=== PATIENT | female | born 1940 | race Caucasian/White ===

== ENCOUNTER 2019-08-28 09:31 | Inpatient (IN) ==
[2019-08-28] MEDS ORDERED: FUROSEMIDE 40 MG/4 ML VIAL IV STA (09:42)
[2019-08-28] MEDS ORDERED: NITROGLYCERIN/D5W 100MCG/ML 250 ML IV SCH (09:45)
[2019-08-28] MEDS ORDERED: NITROGLYCERIN SL 0.4 MG/TAB TAB ONE (09:49)
[2019-08-28 10:03] LABS: Basophils # (auto) 0.06 K/uL (0-0.2); Basophils % (auto) 0.4 %; Eosinophils % (auto) 2.6 %; Hematocrit (blood only) 41.5 % (37-47); Hemoglobin 13.2 g/dL (12.0-16.0); Immature Granulocytes # (auto) 0.07 K/uL (0.00-0.02); Immature Granulocytes % (auto) 0.4 %; Lymphocytes # (auto) 1.59 K/uL (1.2-3.4); Lymphocytes % (auto) 10.1 %; Mean Corpuscular Hemoglobin 30.1 pg (25-34); Mean Corpuscular Hgb Conc 31.8 g/dL (32-36); Mean Corpuscular Volume 94.5 fL (80-100); Monocytes # (auto) 0.77 K/uL (0.11-0.59); Monocytes % (auto) 4.9 %; Neutrophils # (auto) 12.78 K/uL (1.4-6.5); Neutrophils % (auto) 81.6 %; Platelet Count 339 K/uL (130-400); RDW Coefficient of Variation 14.6 % (11.5-14.5); RDW Standard Deviation 49.6 fL (36.4-46.3); Red Blood Count 4.39 M/uL (4.2-5.4); White Blood Count 15.67 K/uL (4.8-10.8)
[2019-08-28 10:07] LABS: iSTAT Creatinine 0.9 mg/dl (0.6-1.3); iSTAT Ionized Calcium 1.19 mmol/l (1.12-1.32); iSTAT Potassium 4.2 mEq/L (3.3-5.0)
[2019-08-28 10:12] LABS: Base Excess VBG -2.9 mEq/L; Oxygen Saturation VBG 69.5 %; pH VBG 7.25 (7.36-7.41)
--- NOTE | 2019-08-28 10:12 | XRay Report ---
XR chest 1V portable HISTORY: 89 years-old Female Dyspnea acute shortness of breath COMPARISON: None available TECHNIQUE: Portable AP view of the chest FINDINGS: Cardiac silhouette is moderately enlarged. Pulmonary vascular congestion with interstitial opacities. Mild right hemidiaphragmatic elevation. Trace pleural effusions with mild bibasilar densities sugges tive of atelectasis. Degenerative changes of the spine. Bilateral shoulder arthroplasties. IMPRESSION: 1. Cardiomegaly with pulmonary edema. 2. Trace pleural effusions with bibasilar opacities suggestive of probable atelectasis. ACT 112: Negative or not required by law. The above report was generated using voice recognition software. It may contain grammatical, syntax o r spelling errors. Electronically signed by: Shankar Giang M.D. 08/28/2019 10:10 AM
[2019-08-28 10:16] LABS: INR 1.1 (0.9-1.1); Partial Thromboplastin Ratio 1.1; Partial Thromboplastin Time 29.1 Seconds (21.0-31.0); Prothrombin Time 11.4 Seconds (9.0-12.0)
[2019-08-28 10:21] LABS: Alanine Aminotransferase 20 U/L (12-78); Albumin Level 3.8 gm/dl (3.4-5.0); Aspartate Aminotransferase 24 U/L (15-37); BUN Creatinine Ratio 12.7 (10-20); Blood Urea Nitrogen 13 mg/dl (7-18); Calcium 9.4 mg/dl (8.5-10.1); Carbon Dioxide 29 mmol/L (21-32); Chloride 105 mmol/L (98-107); Est GFR (African American) 58.7; Est GFR (Non-African American) 50.6; Glucose 179 mg/dl (70-99); Magnesium 1.7 mg/dl (1.8-2.4); Potassium 4.3 mmol/L (3.5-5.1); Sodium 137 mmol/L (136-145)
[2019-08-28 10:25] LABS: Alkaline Phosphatase 67 U/L (45-117); Bilirubin,Total 0.7 mg/dl (0.2-1); Globulin 3.8 gm/dl (2.5-4.0); Total Protein 7.6 gm/dl (6.4-8.2); Troponin I < 0.015 ng/ml (0-0.045)
[2019-08-28 10:26] LABS: Appearance Urine Clear (Clear); Bacteria Urine Automated Negative (Negative); Bilirubin Urine Negative (Negative); Blood Urine Trace (Negative); Cast Urine Automated 0 /lpf (0-5); Color Urine Yellow; Glucose Urine UA Trace (Negative); Ketones Urine Negative (Negative); Leukocyte Esterase Urine Negative (Negative); Nitrite Urine Negative (Negative); Protein Urine 1+ (Negative); RBC Urine Automated 0-4 /hpf (0-4); Specific Gravity Urine 1.008 (1.000-1.030); Urobilinogen Urine Negative (Negative); WBC Urine Automated 0 /hpf (0-5)
[2019-08-28] MEDS ORDERED: MAGNESIUM SULFATE / D5W 1 GM/100 ML BAG IV ONE (10:28)
--- NOTE | 2019-08-28 11:10 | Emergency Department Note ---
Entered by Joana Escobar acting as a scribe for Mahesh Glez DO History of Present Illness General Chief complaint: Shortness of Breath/Dyspnea Stated complaint: SOB Time Seen by Provider: 08/28/19 09:37 Source: patient and family ([id number]) History of Present Illness Onset (ago): hour(s) (last night) Location: chest Severity: severe Pain Consistency: + other (episode) Quality: + other (shortness of breath) Associated symptoms: + cough (productive) The patient is a 89 year old female that is presenting to the Emergency Room with complaints of an episode of severe shortness of breath that started last night and worsened this morning. The patient reports that she is unable to breath. She denies wearing O2 normally. She notes that she was told that she has a history of CHF but she is unsure of the etiology. She denies any known history of a heart attack or heart valve issues. She notes that her shortness of breath worsens with lying flat. She reports that she is coughing up a significant amount of phlegm. The patient states that she is taking Elliquis secondary to a history of atrial fibrillation. The patients [id number] states that the patient was feeling mildly unwell before Bia but then reported feeling well enough to drive here from [place] 4 days ago. The patient states that she took all of her medications this morning. Home Medications Home Medications Medication Instructions Recorded Confirmed Type acetaminophen [Tylenol Extra 500 mg PO UD PRN 08/28/19 08/28/19 History Strength] albuterol sulfate 2 puff INHALATION Q6H PRN 08/28/19 08/28/19 History amlodipine 5 mg PO DAILY 08/28/19 08/28/19 History apixaban 5 mg PO BID 08/28/19 08/28/19 History benzonatate 100 mg PO TID PRN 08/28/19 08/28/19 History budesonide-formoterol [Symbicort] 2 puff INHALATION BID PRN 08/28/19 08/28/19 History clotrimazole-betamethasone 1 applic TOPICAL BID 08/28/19 08/28/19 History [Lotrisone] fenofibrate nanocrystallized 145 mg PO DAILY 08/28/19 08/28/19 History [Tricor] furosemide 40 mg PO QAM 08/28/19 08/28/19 History losartan 100 mg PO DAILY 08/28/19 08/28/19 History metformin 500 mg PO DAILY 08/28/19 08/28/19 History metoprolol succinate [Toprol XL] 100 mg PO DAILY 08/28/19 08/28/19 History montelukast [Singulair] 10 mg PO HS 08/28/19 08/28/19 History multivitamin 1 tab PO DAILY 08/28/19 08/28/19 History omeprazole 20 mg PO DAILY 08/28/19 08/28/19 History pravastatin 40 mg PO DAILY 08/28/19 08/28/19 History pregabalin 100 mg PO TID 08/28/19 08/28/19 History sotalol 120 mg PO BID 08/28/19 08/28/19 History Allergies Allergy/AdvReac Type Severity Reaction Status Date / Time No Known Drug Allergies Allergy Unknown NKDA Verified 08/28/19 10:52 Past Med/Surg History Medical History Aftercare following bilateral shoulder joint replacement surgery Atrial fibrillation CHF (congestive heart failure) Diabetes type 2, controlled Hyperlipidemia Hypertension Surgical History H/O hysterectomy for benign disease History of bilateral knee replacement Family History Other Family history non-contributory Social History Preferred Language: Swazi Communication Ability: Effective Beliefs That Will Affect Care: None marital status: / Current Living Situation: Alone current occupational status: retired Feels Safe at Home: Yes Safety Concerns: Feels Safe At This Time Smoking Status: Never smoker Do You Dip or Chew Tobacco: No ; Hx Alcohol Use: Yes Alcohol type: wine Hx Substance Use: No Review of Systems See HPI for pertinent positives & negatives. and A total of 10 systems reviewed and were otherwise negative Physical Exam Vital Signs Vital Signs - 24 hr 08/28/19 09:43 08/28/19 09:45 08/28/19 09:47 Temperature 37.3 C Temperature Source Oral Pulse Rate 77 Pulse Rate [Apical] 79 Pulse Rate from SpO2 Sensor Pulse Rhythm [Apical] Regular Respiratory Rate 26 H 32 H Respiratory Effort / Characteristics Grunting Labored Blood Pressure 198/103 H Blood Pressure [Left Arm] 200/94 H Blood Pressure Mean 134 Blood Pressure Mean [Left Arm] 129 Blood Pressure Position Sitting Blood Pressure Position [Left Arm] Sitting Pulse Oximetry 72 L 72 L 100 Oxygen Delivery Method Room Air Room Air Non-rebreather Non-rebreather Oxygen Flow Rate 0 Fraction of Inspired Oxygen Sepsis Action Taken by Nursing No Action Required Oxygen Flow Rate - Titration 15 Pulse Oximetry Post Tiitration 100 08/28/19 09:55 08/28/19 10:01 08/28/19 10:10 Temperature Temperature Source Pulse Rate 88 86 Pulse Rate [Apical] 86 Pulse Rate from SpO2 Sensor 88 86 Pulse Rhythm [Apical] Respiratory Rate 26 H 31 H 33 H Respiratory Effort / Characteristics Spontaneous Labored Blood Pressure 180/157 H 194/99 H Blood Pressure [Left Arm] Blood Pressure Mean 160 122 Blood Pressure Mean [Left Arm] Blood Pressure Position Blood Pressure Position [Left Arm] Pulse Oximetry 97 94 95 Oxygen Delivery Method High Flow Nasal Cannula Other Other Oxygen Flow Rate 30 Fraction of Inspired Oxygen 40 Sepsis Action Taken by Nursing Oxygen Flow Rate - Titration Pulse Oximetry Post Tiitration 08/28/19 10:15 08/28/19 10:19 08/28/19 10:31 Temperature Temperature Source Pulse Rate 84 85 Pulse Rate [Apical] Pulse Rate from SpO2 Sensor 84 81 Pulse Rhythm [Apical] Respiratory Rate 35 H 34 H Respiratory Effort / Characteristics Labored Moaning Blood Pressure 183/84 H 154/78 H Blood Pressure [Left Arm] Blood Pressure Mean 117 118 Blood Pressure Mean [Left Arm] Blood Pressure Position Blood Pressure Position [Left Arm] Pulse Oximetry 97 98 Oxygen Delivery Method Other Other Oxygen Flow Rate Fraction of Inspired Oxygen Sepsis Action Taken by Nursing Oxygen Flow Rate - Titration Pulse Oximetry Post Tiitration 08/28/19 10:40 08/28/19 10:45 08/28/19 10:50 Temperature Temperature Source Pulse Rate 81 100 H 98 H Pulse Rate [Apical] Pulse Rate from SpO2 Sensor 81 107 H 97 H Pulse Rhythm [Apical] Respiratory Rate 26 H 33 H 28 H Respiratory Effort / Characteristics Blood Pressure 142/64 H 133/74 Blood Pressure [Left Arm] Blood Pressure Mean 80 88 Blood Pressure Mean [Left Arm] Blood Pressure Position Blood Pressure Position [Left Arm] Pulse Oximetry 97 95 96 Oxygen Delivery Method Oxygen Flow Rate Fraction of Inspired Oxygen Sepsis Action Taken by Nursing Oxygen Flow Rate - Titration Pulse Oximetry Post Tiitration 08/28/19 11:00 Temperature Temperature Source Pulse Rate 96 H Pulse Rate [Apical] Pulse Rate from SpO2 Sensor 93 H Pulse Rhythm [Apical] Respiratory Rate 22 Respiratory Effort / Characteristics Blood Pressure 116/76 Blood Pressure [Left Arm] Blood Pressure Mean 97 Blood Pressure Mean [Left Arm] Blood Pressure Position Blood Pressure Position [Left Arm] Pulse Oximetry 96 Oxygen Delivery Method Oxygen Flow Rate Fraction of Inspired Oxygen Sepsis Action Taken by Nursing Oxygen Flow Rate - Titration Pulse Oximetry Post Tiitration GENERAL: Patient is awake, alert, and in significant distress.Patient is anxious appearing. EYES: The conjunctivae are clear. The pupils are round and reactive. EARS, NOSE, MOUTH AND THROAT: The nose is without any evidence of any deformity. Mucous membranes are moist.Tongue is midline NECK: The neck is nontender and supple. RESPIRATORY: Breath sounds diminished throughout. Rales in all lungs pfeiffer. Breathing is shallow. CARDIOVASCULAR: Heart sounds diminished. Regular rate and rhythm noted to auscultation. No definite murmur appreciated. GASTROINTESTINAL: The abdomen is soft. Bowel sounds are present in all quadrants. Abdomen is nontender. MUSCULOSKELETAL/EXTREMITIES: There is no evidence of gross deformity. Full range of motion is noted in the hips and shoulders. SKIN: There is no obvious evidence of any rash. There are no petechiae, pallor or cyanosis noted. NEUROLOGIC: Patient is awake alert and oriented x3. Course Course 0937:The patient was evaluated in room B01. A complete history and physical examination was performed. 0940: Respiratory response team called. 0948: BP is 211/94 and heart rate is 85 bpm. Patient will be given Nitro sublingual. 0955: Patient was started on a Nitro drip and as well as Lasix. 1019: I discussed the patients case with Leyda Owen, who will evaluate the patient for further management and care. Magnesium was ordered at this time. 1032: Upon reevaluation, the patient is resting comfortably. I discussed laboratory and radiographic results with the patient and her family. They verbalized agreement of the treatment plan. The patient will be evaluated for further management and care. 1045: The patient continues to rest comfortably at this time following treatment. Administered Medications Amlodipine Besylate (Norvasc) 10 mg PO QAM [facility] Stop: 09/28/19 08:59 Last Admin: 08/29/19 08:00 Dose: 10 mg Documented by: [id number] Apixaban (Eliquis) 5 mg PO BID [facility] Stop: 09/27/19 20:59 Last Admin: 08/29/19 07:57 Dose: 5 mg Documented by: [id number] Admin: 08/28/19 20:04 Dose: 5 mg Documented by: [id number] Betamethasone/Clotrimazole (Lotrisone 1/0.5%) 1 appln EXT BID [facility] Stop: 09/27/19 20:59 Last Admin: 08/29/19 08:00 Dose: Not Given Documented by: [id number] Admin: 08/28/19 20:05 Dose: 1 appln Documented by: [id number] Doxycycline Hyclate (Vibramycin) 100 mg PO BID [facility] Stop: 09/02/19 12:59 Last Admin: 08/29/19 07:58 Dose: 100 mg Documented by: [id number] Admin: 08/28/19 20:09 Dose: 100 mg Documented by: [id number] Admin: 08/28/19 14:16 Dose: 100 mg Documented by: [id number] Fenofibrate (Tricor) 145 mg PO DAILY [facility] Stop: 09/28/19 08:59 Last Admin: 08/29/19 07:57 Dose: 145 mg Documented by: [id number] Promethazine HCl 12.5 mg/ (Sodium Chloride) 50.5 mls @ 202 mls/hr IV Q6H PRN PRN Reason: Nausea And Vomiting Stop: 09/27/19 14:45 Last Infusion: 08/28/19 17:15 Dose: 0 mls/hr Documented by: [id number] Admin: 08/28/19 16:59 Dose: 202 mls/hr Documented by: [id number] Insulin Aspart (Novolog Flexpen) 0 units SC ACHS [facility] Stop: 09/27/19 16:29 Last Admin: 08/29/19 07:56 Dose: 1 units Documented by: [id number] Cosigned by: [id number] Admin: 08/28/19 20:16 Dose: Not Given Documented by: [id number] Admin: 08/28/19 16:58 Dose: Not Given Documented by: [id number] Cosigned by: [id number] Losartan Potassium (Cozaar) 100 mg PO DAILY [facility] Stop: 09/28/19 08:59 Last Admin: 08/29/19 08:00 Dose: 100 mg Documented by: [id number] Metoprolol Succinate (Toprol Xl) 100 mg PO QAM [facility] Stop: 09/28/19 08:59 Last Admin: 08/29/19 08:06 Dose: 100 mg Documented by: [id number] Montelukast Sodium (Singulair) 10 mg PO HS [facility] Stop: 09/27/19 20:59 Last Admin: 08/28/19 20:08 Dose: 10 mg Documented by: [id number] Multivitamins (Multivitamin Tab) 1 tab PO DAILY [facility] Stop: 09/28/19 08:59 Last Admin: 08/29/19 07:58 Dose: 1 tab Documented by: [id number] Ondansetron HCl (Zofran) 4 mg IV Q6H PRN PRN Reason: Nausea Stop: 09/27/19 20:59 Last Admin: 08/28/19 21:30 Dose: 4 mg Documented by: [id number] Oseltamivir Phosphate (Tamiflu) 30 mg PO BID [facility]; Protocol Stop: 09/02/19 14:59 Last Admin: 08/29/19 08:06 Dose: 30 mg Documented by: [id number] Admin: 08/28/19 20:17 Dose: 30 mg Documented by: [id number] Admin: 08/28/19 14:42 Dose: 30 mg Documented by: [id number] Pantoprazole Sodium (Protonix) 40 mg PO DAILY [facility] Stop: 09/28/19 08:59 Last Admin: 08/29/19 07:57 Dose: 40 mg Documented by: [id number] Pravastatin Sodium (Pravachol) 40 mg PO DAILY [facility] Stop: 09/28/19 08:59 Last Admin: 08/29/19 07:58 Dose: 40 mg Documented by: [id number] Pregabalin (Lyrica) 100 mg PO TID [facility] Stop: 09/27/19 13:59 Last Admin: 08/29/19 08:06 Dose: 100 mg Documented by: [id number] Admin: 08/28/19 20:06 Dose: 100 mg Documented by: [id number] Admin: 08/28/19 14:16 Dose: 100 mg Documented by: [id number] Sotalol HCl (Betapace) 120 mg PO BID [facility] Stop: 09/27/19 20:59 Last Admin: 08/29/19 07:58 Dose: 120 mg Documented by: [id number] Admin: 08/28/19 20:33 Dose: 120 mg Documented by: [id number] Discontinued Medications Amlodipine Besylate (Norvasc) 5 mg PO DAILY [facility] Stop: 09/27/19 12:09 Last Admin: 08/28/19 13:21 Dose: Not Given Documented by: [id number] Furosemide (Lasix) 40 mg IV NOW STA Stop: 08/28/19 09:43 Last Admin: 08/28/19 09:51 Dose: 40 mg Documented by: [id number] Gabapentin (Neurontin) 100 mg PO NOW STA Stop: 08/28/19 18:22 Last Admin: 08/29/19 03:39 Dose: Not Given Documented by: [id number] Nitroglycerin/Dextrose (Nitroglycerin/D5w 100 Mcg/Ml) 250 mls @ 3 mls/hr IV .Q24H [facility]; Protocol Stop: 09/27/19 09:44 Last Titration: 08/28/19 17:00 Dose: 0 mcg/min, 0 mls/hr Documented by: [id number] Admin: 08/28/19 09:55 Dose: 5 mcg/min, 3 mls/hr Documented by: [id number] Cosigned by: [id number] Magnesium Sulfate/Dextrose (Magnesium Sulfate / D5w) 1 gm in 100 mls @ 100 mls/hr IV ONE ONE Stop: 08/28/19 11:27 Last Infusion: 08/28/19 12:00 Dose: 0 mls/hr Documented by: [id number] Admin: 08/28/19 10:45 Dose: 100 mls/hr Documented by: [id number] Furosemide 40 mg/ Syringe 4 mls @ 4 mls/min IV [id number] [facility] Stop: 09/27/19 16:59 Last Admin: 08/29/19 08:06 Dose: 4 mls/min Documented by: [id number] Admin: 08/28/19 16:59 Dose: 4 mls/min Documented by: [id number] Potassium Chloride (K Enrrique / Wtr) 10 meq in 100 mls @ 100 mls/hr IV Q1H [facility] Stop: 08/29/19 08:29 Last Infusion: 08/29/19 08:34 Dose: 0 mls/hr Documented by: [id number] Admin: 08/29/19 07:34 Dose: 100 mls/hr Documented by: [id number] Infusion: 08/29/19 07:23 Dose: 100 mls/hr Documented by: [id number] Admin: 08/29/19 06:23 Dose: 100 mls/hr Documented by: [id number] Nitroglycerin (Nitrostat) Confirm Administered Dose 1.2 mg .ROUTE .STK-MED ONE Stop: 08/28/19 09:50 Last Admin: 08/28/19 09:50 Dose: 0.4 mg Documented by: [id number] Pregabalin (Lyrica) 100 mg PO ONE ONE Stop: 08/28/19 19:01 Last Admin: 08/28/19 18:49 Dose: 100 mg Documented by: [id number] Critical Care Time Critical Care Time: Yes Total Critical Care Time: 60 I have personally spent 60 minutes of critical care time in the direct management of this patient. This includes bedside care, interpretation of diagnostic studies, and testing, discussion with consultants, patient, and [facility] members, and other required patient management activities. This 60 minutes is in excess of all separately billable procedures. Medical Decision Making Differential Diagnosis Differential diagnoses includes but is not limited to pneumonia, bronchitis, COPD/Asthma exacerbation, pneumothorax, pulmonary embolism, congestive heart failure, acute coronary syndrome Medical Records Attestation: I reviewed the patient's medical records. Home Medications Current Medication List: was personally reviewed by me Laboratory Data Attestation: I reviewed the patient's lab results. Result diagrams: 08/29/19 04:15 08/29/19 04:15 Lab Results 08/28/19 08/28/19 08/28/19 Range/Units 09:49 09:49 09:49 WBC 15.67 H (4.8-10.8) K/uL RBC 4.39 (4.2-5.4) M/uL Hgb 13.2 (12.0-16.0) g/dL POC Hgb (12.0-16.0) g/dl Hct 41.5 (37-47) % POC Hct (37-47) % MCV 94.5 (80-100) fL MCH 30.1 (25-34) pg MCHC 31.8 L (32-36) g/dL RDW Std Deviation 49.6 H (36.4-46.3) fL RDW Coeff of Kirk 14.6 H (11.5-14.5) % Plt Count 339 (130-400) K/uL MPV 10.0 (7.4-10.4) fL Immature Gran % (Auto) 0.4 % Neut % (Auto) 81.6 % Lymph % (Auto) 10.1 % [place] % (Auto) 4.9 % Eos % (Auto) 2.6 % Baso % (Auto) 0.4 % Immature Gran # (Auto) 0.07 H (0.00-0.02) K/uL Neut # (Auto) 12.78 H (1.4-6.5) K/uL Lymph # (Auto) 1.59 (1.2-3.4) K/uL [place] # (Auto) 0.77 H (0.11-0.59) K/uL Eos # (Auto) 0.40 (0-0.5) K/uL Baso # (Auto) 0.06 (0-0.2) K/uL PT 11.4 (9.0-12.0) Seconds INR 1.1 (0.9-1.1) APTT 29.1 (21.0-31.0) Seconds PTT Ratio 1.1 VBG pH (7.36-7.41) VBG pCO2 (38-50) mmHg VBG pO2 mmHg VBG HCO3 mmol/L VBG O2 Saturation % VBG Base Excess mEq/L Barometric Pressure mm/Hg POC Sodium (135-144) mEq/L Sodium 137 (136-145) mmol/L POC Potassium (3.3-5.0) mEq/L Potassium 4.3 (3.5-5.1) mmol/L POC Chloride (101-112) mEq/L Chloride 105 (98-107) mmol/L Carbon Dioxide 29 (21-32) mmol/L POC Total CO2 (24-31) mEq/l Anion Gap 3.0 (3-11) POC Anion Gap (16-25) mmol/L POC BUN (7-18) mg/dl BUN 13 (7-18) mg/dl Creatinine 1.00 (0.6-1.2) mg/dl POC Creatinine (0.6-1.3) mg/dl Est Cr Clr Drug Dosing Not Reportable Est GFR ( Amer) 58.7 Est GFR (Non-Af Amer) 50.6 BUN/Creatinine Ratio 12.7 (10-20) Glucose 179 H (70-99) mg/dl POC Glucose (other) (70-99) mg/dl Calcium 9.4 (8.5-10.1) mg/dl POC Ioniz Calcium Wilfredo (1.12-1.32) mmol/l Magnesium 1.7 L (1.8-2.4) mg/dl Total Bilirubin 0.7 (0.2-1) mg/dl AST 24 (15-37) U/L ALT 20 (12-78) U/L Alkaline Phosphatase 67 (45-117) U/L Troponin I < 0.015 (0-0.045) ng/ml Total Protein 7.6 (6.4-8.2) gm/dl Albumin 3.8 (3.4-5.0) gm/dl Globulin 3.8 (2.5-4.0) gm/dl Albumin/Globulin Ratio 1.0 (0.9-2) Urine Color Urine Appearance (Clear) Urine pH (4.5-7.5) Ur Specific [place] (1.000-1.030) Urine Protein (Negative) Urine Glucose (UA) (Negative) Urine Ketones (Negative) Urine Blood (Negative) Urine Nitrite (Negative) Urine Bilirubin (Negative) Urine Urobilinogen (Negative) Ur Leukocyte Esterase (Negative) Urine WBC (Auto) (0-5) /hpf Urine RBC (Auto) (0-4) /hpf U Hyaline Cast (Auto) (0-5) /lpf U Epithel Cells (Auto) (0-5) /lpf Urine Bacteria (Auto) (Negative) 08/28/19 08/28/19 08/28/19 Range/Units 09:49 09:51 10:10 WBC (4.8-10.8) K/uL RBC (4.2-5.4) M/uL Hgb (12.0-16.0) g/dL POC Hgb 15.0 (12.0-16.0) g/dl Hct (37-47) % POC Hct 44 (37-47) % MCV (80-100) fL MCH (25-34) pg MCHC (32-36) g/dL RDW Std Deviation (36.4-46.3) fL RDW Coeff of Kirk (11.5-14.5) % Plt Count (130-400) K/uL MPV (7.4-10.4) fL Immature Gran % (Auto) % Neut % (Auto) % Lymph % (Auto) % [place] % (Auto) % Eos % (Auto) % Baso % (Auto) % Immature Gran # (Auto) (0.00-0.02) K/uL Neut # (Auto) (1.4-6.5) K/uL Lymph # (Auto) (1.2-3.4) K/uL [place] # (Auto) (0.11-0.59) K/uL Eos # (Auto) (0-0.5) K/uL Baso # (Auto) (0-0.2) K/uL PT (9.0-12.0) Seconds INR (0.9-1.1) APTT (21.0-31.0) Seconds PTT Ratio VBG pH 7.25 L (7.36-7.41) VBG pCO2 58 H (38-50) mmHg VBG pO2 42 mmHg VBG HCO3 25 mmol/L VBG O2 Saturation 69.5 % VBG Base Excess -2.9 mEq/L Barometric Pressure 735.5 mm/Hg POC Sodium 138 (135-144) mEq/L Sodium (136-145) mmol/L POC Potassium 4.2 (3.3-5.0) mEq/L Potassium (3.5-5.1) mmol/L POC Chloride 104 (101-112) mEq/L Chloride (98-107) mmol/L Carbon Dioxide (21-32) mmol/L POC Total CO2 25 (24-31) mEq/l Anion Gap (3-11) POC Anion Gap 14.0 L (16-25) mmol/L POC BUN 13 (7-18) mg/dl BUN (7-18) mg/dl Creatinine (0.6-1.2) mg/dl POC Creatinine 0.9 (0.6-1.3) mg/dl Est Cr Clr Drug Dosing Est GFR ( Amer) Est GFR (Non-Af Amer) BUN/Creatinine Ratio (10-20) Glucose (70-99) mg/dl POC Glucose (other) 172 H (70-99) mg/dl Calcium (8.5-10.1) mg/dl POC Ioniz Calcium Wilfredo 1.19 (1.12-1.32) mmol/l Magnesium (1.8-2.4) mg/dl Total Bilirubin (0.2-1) mg/dl AST (15-37) U/L ALT (12-78) U/L Alkaline Phosphatase (45-117) U/L Troponin I (0-0.045) ng/ml Total Protein (6.4-8.2) gm/dl Albumin (3.4-5.0) gm/dl Globulin (2.5-4.0) gm/dl Albumin/Globulin Ratio (0.9-2) Urine Color Yellow Urine Appearance Clear (Clear) Urine pH 7.0 (4.5-7.5) Ur Specific [place] 1.008 (1.000-1.030) Urine Protein 1+ H (Negative) Urine Glucose (UA) Trace H (Negative) Urine Ketones Negative (Negative) Urine Blood Trace H (Negative) Urine Nitrite Negative (Negative) Urine Bilirubin Negative (Negative) Urine Urobilinogen Negative (Negative) Ur Leukocyte Esterase Negative (Negative) Urine WBC (Auto) 0 (0-5) /hpf Urine RBC (Auto) 0-4 (0-4) /hpf U Hyaline Cast (Auto) 0 (0-5) /lpf U Epithel Cells (Auto) 5-10 H (0-5) /lpf Urine Bacteria (Auto) Negative (Negative) Imaging Data Radiologist's Impression: Radiology results as stated below per my review and the radiologist's interpretation: XR chest 1V portable HISTORY: 89 years-old Female Dyspnea acute shortness of breath COMPARISON: None available TECHNIQUE: Portable AP view of the chest FINDINGS: Cardiac silhouette is moderately enlarged. Pulmonary vascular congestion with interstitial opacities. Mild right hemidiaphragmatic elevation. Trace pleural effusions with mild bibasilar densities suggestive of atelectasis. Degenerative changes of the spine. Bilateral shoulder arthroplasties. IMPRESSION: 1. Cardiomegaly with pulmonary edema. 2. Trace pleural effusions with bibasilar opacities suggestive of probable atelectasis. ACT 112: Negative or not required by law. The above report was generated using voice recognition software. It may contain grammatical, syntax or spelling errors. Electronically signed by: Shankar Giang M.D. 08/28/2019 10:10 AM ECG Data Attestation: I personally reviewed and interpreted this ECG as follows: Indication: + SOB/dyspnea Rate (beats per minute): 79 Rhythm: + normal sinus ECG ST segments: + ST depression (Lateral) ECG Findings: + Poor R wave progression; no PACs and no PVCs Comparison ECG Date: no prior available Blood Pressure Blood Pressure Findings: Elevated blood pressure Blood Pressure Disposition: further management by hospitalist MDM Narrative The patient is a 79-year-old female who presented to the emergency department for an evaluation of shortness of breath. The patient presented with family members. The patient's history and physical exam appear to be consistent with pulmonary edema. She had a rather acute onset of shortness of breath and radiographic studies confirm pulmonary edema. She was started on IV Lasix as well as IV nitroglycerin. She was given a dose of IV magnesium as well. I discussed the patient's laboratory and radiographic studies with her. She was started on vapotherm. Her condition continued to improve while she was in the emergency department. The patient was reevaluated multiple times. I discussed her case with the on-call [facility] hospitalist group. They have agreed to evaluate the patient in the emergency department for further management and disposition. The patient's blood pressure improved. Impression & Plan Pulmonary edema, Respiratory failure, Hypoxia, Acute respiratory acidosis, Hypomagnesemia Discharge Plan Visit Data *Final* Discharge Date/Time: 08/28/19 11:37 Chief Complaint: Shortness of Breath/Dyspnea Stated Complaint: SOB ED Provider: Mahesh Glez Discharge Problem: Pulmonary edema, Respiratory failure, Hypoxia, Acute respiratory acidosis, Hypomagnesemia Patient Disposition: Admitted As Inpatient Discharge Instructions Interventions: ED Discharge Assessment Last Done: 08/28/19 11:37 Discharge Problem: Pulmonary edema Qualifiers: Chronicity: acute Qualified Code(s): J81.0 - Acute pulmonary edema Respiratory failure Qualifiers: Chronicity: unspecified Respiratory failure complication: hypoxia Qualified Code(s): J96.91 - Respiratory failure, unspecified with hypoxia The scribe's documentation has been prepared under my direction and personally reviewed by me in its entirety. I confirm that the note above accurately reflects all work, treatment, procedures, and medical decision making performed by me.
[2019-08-28] MEDS ORDERED: FUROSEMIDE 40 MG/4 ML VIAL IV SCH (11:15)
[2019-08-28] MEDS ORDERED: GLUCOSE 40% GEL 15 GM TUBE PO PRN (11:42)
[2019-08-28] MEDS ORDERED: CARBOHYDRATES FOR HYPOGLYCEMIA PO PRN (11:42)
[2019-08-28] MEDS ORDERED: DEXTROSE 50% 50 ML SYRINGE IV PRN (11:42)
[2019-08-28] MEDS ORDERED: GLUCOSE 10 TABS/TUBE PO PRN (11:42)
[2019-08-28] MEDS ORDERED: GLUCAGON FOR INJ 1 MG VIAL SQ PRN (11:42)
--- NOTE | 2019-08-28 11:42 | History & Physical Report ---
Date of Service August 28, 2019 Assessment & Plan (1) Acute pulmonary edema: Has history of CHF likely diastolic given the history of atrial fibrillation Presented with acute pulmonary edema Has been started on intravenous nitroglycerin with improvement Received intravenous Lasix in the ER and will continue 40 mg twice daily Initial troponin has been negative and EKG is in sinus rhythm with controlled rate The patient will be admitted to ICU [facility] and cardiology consulted Present on Admission?: Yes (2) Atrial fibrillation: History of atrial fibrillation status post cardioversion in the past Now is in sinus rhythm Has been on Eliquis We will continue sotalol 120 mg twice daily and hold metoprolol for now (3) Hypertension: History of hypertension on beta-marc, ARB and calcium beta-marc Blood pressure noted to be very high at presentation with systolic more than 200 Has been started on nitroglycerin drip and the blood pressure is coming down We will continue current medications but hold metoprolol for now given acute pulmonary edema (4) Diabetes type 2, controlled: We will hold metformin Blood sugar AC at bedtime and SSI (5) Respiratory failure: Presented with pulmonary edema with respiratory failure Noted to have acidosis at presentation Expected to improve Present on Admission?: Yes (6) CHF (congestive heart failure): History of congestive heart failure likely diastolic We will get an echocardiogram (7) Hyperlipidemia: Continue current medications DVT prophylaxis Continue Eliquis CODE STATUS Full Discussed with the family members in detail History of Present Illness Chief Complaint: Shortness of breath since yesterday Primary Care Provider: NO PCP She is visiting from [place] She is a 79-year-old obese female with significant past medical history of hy pertension, diabetes type 2, atrial fibrillation and CHF apparently has been visiting from [place] to [place]. She has had viral illness/bronchitis about 1 week ago and she has been on amoxicillin 3 times a day for that and she has been feeling better with her symptoms. She complains to have shortness of breath that started yesterday morning and got worse every time she tried to get up stairs. He did not complain any chest pain but did complain to have palpitation once or twice yesterday. Denies any swelling of the legs recently or any weight gain. She denies any fever and/or chills but does have cough with whitish phlegm. She does not have any abdominal distention but does have some nausea without vomiting. Denies any problem with urine and her bowel habit. Denies any neurological symptoms. She was noted to have acute ulnar edema in chest x-ray and she was started with intravenous nitroglycerin and received intravenous Lasix. She was admitted to ICU. Cardiology and airport engineer consult. Allergies Allergy/AdvReac Type Severity Reaction Status Date / Time No Known Drug Allergies Allergy Unknown NKDA Verified 08/28/19 10:52 Home Medications Home Medications Medication Instructions Recorded Confirmed Type acetaminophen [Tylenol Extra 500 mg PO UD PRN 08/28/19 08/28/19 History Strength] albuterol sulfate 2 puff INHALATION Q6H PRN 08/28/19 08/28/19 History amlodipine 5 mg PO DAILY 08/28/19 08/28/19 History amoxicillin 0 mg PO TID 08/28/19 08/28/19 History apixaban 5 mg PO BID 08/28/19 08/28/19 History benzonatate 100 mg PO TID PRN 08/28/19 08/28/19 History budesonide-formoterol [Symbicort] 2 puff INHALATION BID PRN 08/28/19 08/28/19 History clotrimazole-betamethasone 1 applic TOPICAL BID 08/28/19 08/28/19 History [Lotrisone] fenofibrate nanocrystallized 145 mg PO DAILY 08/28/19 08/28/19 History [Tricor] furosemide 40 mg PO QAM 08/28/19 08/28/19 History losartan 100 mg PO DAILY 08/28/19 08/28/19 History metformin 500 mg PO DAILY 08/28/19 08/28/19 History metoprolol succinate [Toprol XL] 100 mg PO DAILY 08/28/19 08/28/19 History montelukast [Singulair] 10 mg PO HS 08/28/19 08/28/19 History multivitamin 1 tab PO DAILY 08/28/19 08/28/19 History omeprazole 20 mg PO DAILY 08/28/19 08/28/19 History pravastatin 40 mg PO DAILY 08/28/19 08/28/19 History pregabalin 100 mg PO TID 08/28/19 08/28/19 History sotalol 120 mg PO BID 08/28/19 08/28/19 History Past Med/Surg History Medical History (Updated 08/28/19 @ 11:33 by Jaye Jain MD) Aftercare following bilateral shoulder joint replacement surgery Atrial fibrillation CHF (congestive heart failure) Diabetes type 2, controlled Hyperlipidemia Hypertension Surgical History (Updated 08/28/19 @ 11:33 by Jaye Jain MD) H/O hysterectomy for benign disease History of bilateral knee replacement Family History Other Family history non-contributory Social History Preferred Language: Czech Communication Ability: Effective marital status: / current occupational status: retired Feels Safe at Home: Yes Smoking Status: Never smoker Review of Systems Review of Systems: All systems reviewed & are unremarkable except as noted in HPI & below Physical Exam Physical Exam: Lying in bed with moderate shortness of breath at rest Constitutional: well developed, well nourished, + acute distress, + ill appearing and + obese Eyes: PERRL, conjunctivae normal, anicteric sclerae ENMT: external ear and nose normal, oropharynx normal Neck: trachea midline, no thyromegaly Respiratory: + respiratory distress and + labored breathing Auscultation: + breath sounds absent and + crackles (Bilaterally at the bases) Cardiovascular: Rate/Rhythm: regular rate and regular rhythm Heart Sounds: no murmur Extremities: + pedal edema (Trace edema bilaterally, slightly more on the right) Gastrointestinal (Abdomen): Inspection/Auscultation: abdomen normal to inspection and normal bowel sounds Musculoskeletal: No acute arthritis in any joints Neurologic: Alert, awake and oriented x3 Lymphatic: no cervical or axillary lymphadenopathy Results & Data Vital Signs (Past 12 Hours) Vital Signs Temp Pulse Pulse Resp BP BP Pulse Ox 08/28/19 11:10 79 19 119/65 95 08/28/19 11:00 96 H 22 116/76 96 08/28/19 10:50 98 H 28 H 133/74 96 08/28/19 10:45 100 H 33 H 95 08/28/19 10:40 81 26 H 142/64 H 97 08/28/19 10:31 85 34 H 154/78 H 98 08/28/19 10:15 84 35 H 183/84 H 97 08/28/19 10:10 86 33 H 194/99 H 95 08/28/19 10:01 88 31 H 180/157 H 94 08/28/19 09:55 86 26 H 97 08/28/19 09:47 79 32 H 200/94 H 100 08/28/19 09:45 72 L 08/28/19 09:43 37.3 C 77 26 H 198/103 H 72 L Laboratory Results Short CBC 08/28/19 Range/Units 09:49 WBC 15.67 H (4.8-10.8) K/uL Hgb 13.2 (12.0-16.0) g/dL Hct 41.5 (37-47) % Plt Count 339 (130-400) K/uL BMP 08/28/19 09:49 Sodium 137 Potassium 4.3 Chloride 105 Carbon Dioxide 29 BUN 13 Creatinine 1.00 Glucose 179 H Calcium 9.4 Cardiac Enzymes 08/28/19 Range/Units 09:49 Troponin I < 0.015 (0-0.045) ng/ml Liver Function 08/28/19 Range/Units 09:49 Total Bilirubin 0.7 (0.2-1) mg/dl AST 24 (15-37) U/L ALT 20 (12-78) U/L Alkaline Phosphatase 67 (45-117) U/L Albumin 3.8 (3.4-5.0) gm/dl Urine 08/28/19 Range/Units 10:10 Urine Color Yellow Urine Appearance Clear (Clear) Urine pH 7.0 (4.5-7.5) Ur Specific [place] 1.008 (1.000-1.030) Urine Protein 1+ H (Negative) Urine Glucose (UA) Trace H (Negative) Medications Administered Current Inpatient Medications Furosemide (Lasix) 40 mg IV BID [facility] Stop: 09/27/19 11:14 Nitroglycerin/Dextrose (Nitroglycerin/D5w 100 Mcg/Ml) 250 mls @ 3 mls/hr IV .Q24H [facility]; Protocol Stop: 09/27/19 09:44 Last Admin: 08/28/19 09:55 Dose: 5 mcg/min, 3 mls/hr Documented by: Code Status & VTE Plan Code Status Full code VTE Prophylaxis Plan VTE Prophylaxis will be ordered: Yes (1) Respiratory failure Chronicity: unspecified Respiratory failure complication: hypoxia Qualified Code(s): J96.91 - Respiratory failure, unspecified with hypoxia
--- NOTE | 2019-08-28 11:43 | Cardiology Consultation ---
Date of Consultation August 28, 2019 Assessment & Plan (1) PAF (paroxysmal atrial fibrillation): (2) CHF (congestive heart failure): (3) Diabetes type 2, controlled: Believe the patient is in congestive heart failure. I would recommend IV diuretics. She seems to be maintaining sinus rhythm and I would continue her sotalol. I would obtain cardiac markers and an echocardiogram. She should be admitted to a telemetry floor. History of Present Illness History of Present Illness This is a pleasant 79-year-old female who was visiting family in [place]. She resides in [place], [place]. She has a history of atrial fibrillation and congestive heart failure. No significant history of ischemic heart disease. According the patient she was cardioverted 4 to 5 years ago from atrial fibrillation to normal sinus rhythm and placed on sotalol. According to the patient she has done well but may have had a hospital admission in December of this year for congestive heart failure. She is also had a previous cardiac catheterization but denies coronary intervention. In the past she has been on diabetic medications but was taken off of these medications and told to follow a good diet. She states she was sick before the holiday and given Lasix as well as an antibiotic by her primary care physician. She did feel better and was able to drive to [place]. Over the past several days however, she has no ticed increased shortness of breath and dyspnea. She is not able to lie flat and rest. She was brought to the emergency department by her family. Allergies Allergy/AdvReac Type Severity Reaction Status Date / Time No Known Drug Allergies Allergy Unknown NKDA Verified 08/28/19 10:52 Home Medications Home Medications Medication Instructions Recorded Confirmed Type acetaminophen [Tylenol Extra 500 mg PO UD PRN 08/28/19 08/28/19 History Strength] albuterol sulfate 2 puff INHALATION Q6H PRN 08/28/19 08/28/19 History amlodipine 5 mg PO DAILY 08/28/19 08/28/19 History apixaban 5 mg PO BID 08/28/19 08/28/19 History benzonatate 100 mg PO TID PRN 08/28/19 08/28/19 History budesonide-formoterol [Symbicort] 2 puff INHALATION BID PRN 08/28/19 08/28/19 History clotrimazole-betamethasone 1 applic TOPICAL BID 08/28/19 08/28/19 History [Lotrisone] fenofibrate nanocrystallized 145 mg PO DAILY 08/28/19 08/28/19 History [Tricor] furosemide 40 mg PO QAM 08/28/19 08/28/19 History losartan 100 mg PO DAILY 08/28/19 08/28/19 History metformin 500 mg PO DAILY 08/28/19 08/28/19 History metoprolol succinate [Toprol XL] 100 mg PO DAILY 08/28/19 08/28/19 History montelukast [Singulair] 10 mg PO HS 08/28/19 08/28/19 History multivitamin 1 tab PO DAILY 08/28/19 08/28/19 History omeprazole 20 mg PO DAILY 08/28/19 08/28/19 History pravastatin 40 mg PO DAILY 08/28/19 08/28/19 History pregabalin 100 mg PO TID 08/28/19 08/28/19 History sotalol 120 mg PO BID 08/28/19 08/28/19 History Patient History Medical History Aftercare following bilateral shoulder joint replacement surgery Atrial fibrillation CHF (congestive heart failure) Diabetes type 2, controlled Hyperlipidemia Hypertension Surgical History H/O hysterectomy for benign disease History of bilateral knee replacement Family History Other Family history non-contributory Social History Preferred Language: Bulgarian Communication Ability: Effective Beliefs That Will Affect Care: None marital status: / Current Living Situation: Alone current occupational status: retired Feels Safe at Home: Yes Safety Concerns: Feels Safe At This Time Smoking Status: Never smoker Do You Dip or Chew Tobacco: No ; Hx Alcohol Use: Yes Alcohol type: wine Hx Substance Use: No Review of Systems Review of Systems: All systems reviewed & are unremarkable except as noted in HPI & below Nothing additional to add. Physical Exam Physical Exam: General: no acute distress and stated age Head: normocephalic, no masses, lesions, tenderness or abnormalities Eyes: conjunctiva are pink and non-injected, sclera clear Neck: supple, no adenopathy, no bruits, normal jugular venous pulse, no hepatojugular reflux Chest: normal shape and normal respiratory effort Lungs: clear to auscultation and percussion Cardiac Exam: - regular rate & rhythm, no murmurs gallops or rubs - normal S1, normal S2 Pulses: 2(+) throughout Abdomen: abdomen soft, non-tender, no abnormal masses and no hepatosplenomegaly Musculoskeletal: no gait disturbance, no joint inflammation, no deforming arthritis Extremities: no edema and no cyanosis Neuro: grossly normal exam Results & Data Vital Signs (Past 12 Hours) Vital Signs Temp Pulse Pulse Resp BP BP Pulse Ox 08/28/19 11:30 95 H 19 135/67 96 08/28/19 11:20 97 H 19 137/73 96 08/28/19 11:10 79 19 119/65 95 08/28/19 11:00 96 H 22 116/76 96 08/28/19 10:50 98 H 28 H 133/74 96 08/28/19 10:45 100 H 33 H 95 08/28/19 10:40 81 26 H 142/64 H 97 08/28/19 10:31 85 34 H 154/78 H 98 08/28/19 10:15 84 35 H 183/84 H 97 08/28/19 10:10 86 33 H 194/99 H 95 08/28/19 10:01 88 31 H 180/157 H 94 08/28/19 09:55 86 26 H 97 08/28/19 09:47 79 32 H 200/94 H 100 08/28/19 09:45 72 L 08/28/19 09:43 37.3 C 77 26 H 198/103 H 72 L Laboratory Results Laboratory Results - last 24 hr 08/28/19 08/28/19 08/28/19 09:49 09:49 09:49 WBC 15.67 H RBC 4.39 Hgb 13.2 POC Hgb Hct 41.5 POC Hct MCV 94.5 MCH 30.1 MCHC 31.8 L RDW Std Deviation 49.6 H RDW Coeff of Kirk 14.6 H Plt Count 339 MPV 10.0 Immature Gran % (Auto) 0.4 Neut % (Auto) 81.6 Lymph % (Auto) 10.1 Clayton % (Auto) 4.9 Eos % (Auto) 2.6 Baso % (Auto) 0.4 Immature Gran # (Auto) 0.07 H Neut # (Auto) 12.78 H Lymph # (Auto) 1.59 Clayton # (Auto) 0.77 H Eos # (Auto) 0.40 Baso # (Auto) 0.06 PT 11.4 INR 1.1 APTT 29.1 PTT Ratio 1.1 VBG pH VBG pCO2 VBG pO2 VBG HCO3 VBG O2 Saturation VBG Base Excess Barometric Pressure POC Sodium Sodium 137 POC Potassium Potassium 4.3 POC Chloride Chloride 105 Carbon Dioxide 29 POC Total CO2 Anion Gap 3.0 POC Anion Gap POC BUN BUN 13 Creatinine 1.00 POC Creatinine Est Cr Clr Drug Dosing Not Reportable Est GFR ( Amer) 58.7 Est GFR (Non-Af Amer) 50.6 BUN/Creatinine Ratio 12.7 Glucose 179 H POC Glucose (other) Calcium 9.4 POC Ioniz Calcium Wilfredo Magnesium 1.7 L Total Bilirubin 0.7 AST 24 ALT 20 Alkaline Phosphatase 67 Troponin I < 0.015 Total Protein 7.6 Albumin 3.8 Globulin 3.8 Albumin/Globulin Ratio 1.0 Urine Color Urine Appearance Urine pH Ur Specific [place] Urine Protein Urine Glucose (UA) Urine Ketones Urine Blood Urine Nitrite Urine Bilirubin Urine Urobilinogen Ur Leukocyte Esterase Urine WBC (Auto) Urine RBC (Auto) U Hyaline Cast (Auto) U Epithel Cells (Auto) Urine Bacteria (Auto) 08/28/19 08/28/19 08/28/19 09:49 09:51 10:10 WBC RBC Hgb POC Hgb 15.0 Hct POC Hct 44 MCV MCH MCHC RDW Std Deviation RDW Coeff of Kirk Plt Count MPV Immature Gran % (Auto) Neut % (Auto) Lymph % (Auto) Clayton % (Auto) Eos % (Auto) Baso % (Auto) Immature Gran # (Auto) Neut # (Auto) Lymph # (Auto) Clayton # (Auto) Eos # (Auto) Baso # (Auto) PT INR APTT PTT Ratio VBG pH 7.25 L VBG pCO2 58 H VBG pO2 42 VBG HCO3 25 VBG O2 Saturation 69.5 VBG Base Excess -2.9 Barometric Pressure 735.5 POC Sodium 138 Sodium POC Potassium 4.2 Potassium POC Chloride 104 Chloride Carbon Dioxide POC Total CO2 25 Anion Gap POC Anion Gap 14.0 L POC BUN 13 BUN Creatinine POC Creatinine 0.9 Est Cr Clr Drug Dosing Est GFR ( Amer) Est GFR (Non-Af Amer) BUN/Creatinine Ratio Glucose POC Glucose (other) 172 H Calcium POC Ioniz Calcium Wilfredo 1.19 Magnesium Total Bilirubin AST ALT Alkaline Phosphatase Troponin I Total Protein Albumin Globulin Albumin/Globulin Ratio Urine Color Yellow Urine Appearance Clear Urine pH 7.0 Ur Specific [place] 1.008 Urine Protein 1+ H Urine Glucose (UA) Trace H Urine Ketones Negative Urine Blood Trace H Urine Nitrite Negative Urine Bilirubin Negative Urine Urobilinogen Negative Ur Leukocyte Esterase Negative Urine WBC (Auto) 0 Urine RBC (Auto) 0-4 U Hyaline Cast (Auto) 0 U Epithel Cells (Auto) 5-10 H Urine Bacteria (Auto) Negative Medications Administered Current Inpatient Medications Dextrose (Dextrose 50%) 25 - 50 ml IV UD PRN; Protocol PRN Reason: Hypoglycemia Protocol Stop: 09/27/19 11:41 Furosemide (Lasix) 40 mg IV BID [facility] Stop: 09/27/19 11:14 Glucagon (Glucagen) 1 mg SQ UD PRN; Protocol PRN Reason: Hypoglycemia Protocol Stop: 09/27/19 11:41 Glucose (Dex4 Glucose) 4 - 8 tabs PO UD PRN; Protocol PRN Reason: Hypoglycemia Protocol Stop: 09/27/19 11:41 Glucose (Glucose 40%) 15 - 30 gm PO UD PRN; Protocol PRN Reason: Hypoglycemia Protocol Stop: 09/27/19 11:41 Nitroglycerin/Dextrose (Nitroglycerin/D5w 100 Mcg/Ml) 250 mls @ 3 mls/hr IV .Q24H [facility]; Protocol Stop: 09/27/19 09:44 Last Admin: 08/28/19 09:55 Dose: 5 mcg/min, 3 mls/hr Documented by: Insulin Aspart (Novolog Flexpen) 0 units SC ACHS [facility] Stop: 09/27/19 16:29 Miscellaneous (Carbohydrates For Hypoglycemia) 15 - 30 gm PO UD PRN PRN Reason: Hypoglycemia Protocol Stop: 09/27/19 11:41
--- NOTE | 2019-08-28 12:06 | Critical Care Consultation ---
Date of Consultation August 28, 2019 Assessment & Plan (1) Acute respiratory failure with hypoxia: --Acute hypoxic respiratory failure In the presentation of hypertensive emergency likely resulting in tube pulmonary edema Patient was started on nitroglycerin drip in the ER-- > continue with it, continue with diuretics to have negative balance Strict in and out, follow-up 2D echo Unlikely to be infectious etiology, although WBC count is elevated this could be reactive--> follow-up septic work-up, if negative will DC antibiotics BiPAP nightly and PRN shortness of breath Keep oxygen saturation between 90 to 92% EKG did not show any ST-T wave changes, left axis deviation. Patient states that she took her blood pressure medications at home in the morning which includes metoprolol succinate 100 mg, losartan 100 mg, amlodipine 5 mg. Will increase amlodipine to 10 mg. If need be will increase metoprolol succinate to 150 mg. --A. fib Rate controlled On sotalol On apixaban for stroke prophylaxis --Obstructive sleep apnea Continue with BiPAP nightly and PRN shortness of breath --Morbid obesity Advised to lose weight with diet and exercise --Loose bowel movement Likely secondary to amoxicillin use Monitor. --Secondary hypercoagulable state On apixaban (2) Hypertensive emergency: (3) Acute pulmonary edema: (4) Diabetes type 2, controlled: (5) MICHOACANO (obstructive sleep apnea): History of Present Illness Attending Physician: Jaye Jain MD History of Present Illness 79-year-old female with past medical history of hypertension, A. fib diabetes mellitus type 2, questionable diastolic CHF comes into the ER with complaints of shortness of breath which is been going on since which has been progressively getting worse. Patient denies any palpitations, no chest pain, no nausea or vomiting, positive headache. No blurry vision. No fever or chills. Dry cough. Patient denies any dysuria. Patient had 3 loose bowel movements prior to coming to the hospital. No hematochezia, no hematuria. Patient says she had runny nose prior to initiation of shortness of breath. No recent sick contacts. Patient was started on amoxicillin And Ellik acid since 1 week by the PMD. Patient states she is compliant with her blood pressure medication. But she has not been compliant with her diet since . No night sweats, no weight loss In the ED patient's blood pressure was 211 x 94 for which she was started on nitroglycerin drip. Social history: Non-smoker, no illicit drug use, social alcohol No pets or dogs at home. No birds at home. Allergies Allergy/AdvReac Type Severity Reaction Status Date / Time No Known Drug Allergies Allergy Unknown NKDA Verified 08/28/19 10:52 Home Medications Home Medications Medication Instructions Recorded Confirmed Type acetaminophen [Tylenol Extra 500 mg PO UD PRN 08/28/19 08/28/19 History Strength] albuterol sulfate 2 puff INHALATION Q6H PRN 08/28/19 08/28/19 History amlodipine 5 mg PO DAILY 08/28/19 08/28/19 History apixaban 5 mg PO BID 08/28/19 08/28/19 History benzonatate 100 mg PO TID PRN 08/28/19 08/28/19 History budesonide-formoterol [Symbicort] 2 puff INHALATION BID PRN 08/28/19 08/28/19 History clotrimazole-betamethasone 1 applic TOPICAL BID 08/28/19 08/28/19 History [Lotrisone] fenofibrate nanocrystallized 145 mg PO DAILY 08/28/19 08/28/19 History [Tricor] furosemide 40 mg PO QAM 08/28/19 08/28/19 History losartan 100 mg PO DAILY 08/28/19 08/28/19 History metformin 500 mg PO DAILY 08/28/19 08/28/19 History metoprolol succinate [Toprol XL] 100 mg PO DAILY 08/28/19 08/28/19 History montelukast [Singulair] 10 mg PO HS 08/28/19 08/28/19 History multivitamin 1 tab PO DAILY 08/28/19 08/28/19 History omeprazole 20 mg PO DAILY 08/28/19 08/28/19 History pravastatin 40 mg PO DAILY 08/28/19 08/28/19 History pregabalin 100 mg PO TID 08/28/19 08/28/19 History sotalol 120 mg PO BID 08/28/19 08/28/19 History Patient History Medical History Aftercare following bilateral shoulder joint replacement surgery Atrial fibrillation CHF (congestive heart failure) Diabetes type 2, controlled Hyperlipidemia Hypertension Surgical History H/O hysterectomy for benign disease History of bilateral knee replacement Family History Other Family history non-contributory Social History Preferred Language: Divehi Communication Ability: Effective marital status: / current occupational status: retired Feels Safe at Home: Yes Smoking Status: Never smoker Review of Systems Review of Systems: All systems reviewed & are unremarkable except as noted in HPI & below Physical Exam Physical Exam: Constitutional: No acute distress HEENT: EOMI, PERRLA, thick neck, Mallampati 4 Respiratory system: Decreased air entry bilaterally, no wheeze, no rhonchi, positive bilateral lower lobe crackles CVS: S1-S2 positive, no murmurs or gallops, irregular rhythm Abdomen: Soft, nontender, nondistended, positive bowel sounds x4, obese Extremities: +2 pulses bilaterally radialis/ dorsalis pedis, no cyanosis, +1 edema bilateral lower extremities Neuro: Awake alert oriented x3 Psych: Normal mood and affect G/U: Positive Holman Skin: no rashes, warm and dry Lymphatic: no cervical or axillary lymphadenopathy Results & Data Vital Signs (Past 12 Hours) Vital Signs Temp Pulse Pulse Resp BP BP Pulse Ox 08/28/19 11:30 95 H 19 135/67 96 08/28/19 11:20 97 H 19 137/73 96 08/28/19 11:10 79 19 119/65 95 08/28/19 11:00 96 H 22 116/76 96 08/28/19 10:50 98 H 28 H 133/74 96 08/28/19 10:45 100 H 33 H 95 08/28/19 10:40 81 26 H 142/64 H 97 08/28/19 10:31 85 34 H 154/78 H 98 08/28/19 10:15 84 35 H 183/84 H 97 08/28/19 10:10 86 33 H 194/99 H 95 08/28/19 10:01 88 31 H 180/157 H 94 08/28/19 09:55 86 26 H 97 08/28/19 09:47 79 32 H 200/94 H 100 08/28/19 09:45 72 L 08/28/19 09:43 37.3 C 77 26 H 198/103 H 72 L 08/28/19 09:49 08/28/19 09:49 Diagnostic Findings Pocus: Heart: Minimal pericardial effusion, RVOT normal in size, biatrial enlargement, left ventricular second, ejection fraction looks okay (although poor visualization) Lungs: Positive B-lines bilateral posteriorly, no significant pleural effusion Abdomen: No peritoneal fluid. [facility] [place] Procedure Codes (Charges) Pulmonary/Thoracic Procedure 1: Pulmonary and Thoracic: 31402 US, Chest, real time with imaging documentat ion Coding Level of Care Code Critical Care 1st 30-74 mins Diagnoses Acute respiratory failure with hypoxia J96.01 Hypertensive emergency I16.1 Acute pulmonary edema J81.0 Diabetes type 2, controlled E11.9 MICHOACANO (obstructive sleep apnea) G47.33 CPT Codes Pulmonary/Thoracic - Pulmonary and Thoracic: 70720 US, Chest, real time with imaging documentation ([id number]) Time Spent (min) 70
[2019-08-28] MEDS ORDERED: BUDESONIDE/FORMOTEROL FUMARATE 160/4.5 60 PUFFS/INHALER INH PRN (12:10)
[2019-08-28] MEDS ORDERED: ALBUTEROL HFA 8 GM INHALER INH PRN (12:10)
[2019-08-28] MEDS ORDERED: AMLODIPINE BESYLATE 5 MG TAB PO SCH (12:10)
[2019-08-28] MEDS ORDERED: ACETAMINOPHEN 500 MG TAB PO PRN (12:10)
[2019-08-28 13:19] LABS: C Reactive Protein 3.17 mg/dl (0-0.29); Phosphorus 2.4 mg/dl (2.5-4.9)
[2019-08-28 14:00] LABS: Influenza B virus by PCR Neg for Influ B (Neg)
[2019-08-28] MEDS ORDERED: AMOXICILLIN PO SCH (14:00)
[2019-08-28] MEDS: DOXYCYCLINE HYCLATE 100 MG CAP PO SCH ×2 (14:16→20:09)
[2019-08-28] MEDS: PREGABALIN 100 MG CAP PO SCH ×2 (14:16→20:06)
[2019-08-28] MEDS: OSELTAMIVIR PHOSPHATE SUSP 30 MG/5 ML UDP PO SCH ×2 (14:42→20:17)
[2019-08-28] MEDS: INSULIN ASPART 100 UNITS/ML 3 ML PEN SC SCH ×2 (16:58→20:16)
[2019-08-28] MEDS: FUROSEMIDE 40 MG in SYRINGE 0 ML IV SCH (16:59)
[2019-08-28] MEDS: PROMETHAZINE HCL 12.5 MG in SODIUM CHLORIDE 0.9% 50 ML IV PRN (16:59)
[2019-08-28] MEDS ORDERED: GABAPENTIN 100 MG CAP PO STA (18:21)
[2019-08-28] MEDS ORDERED: PREGABALIN 100 MG CAP PO ONE (19:00)
[2019-08-28] MEDS: APIXABAN 5 MG TABLET PO SCH (20:04)
[2019-08-28] MEDS: CLOTRIMAZOLE/BETAMETHASONE CR 15 GM TUBE EXT SCH (20:05)
[2019-08-28] MEDS: MONTELUKAST SODIUM 10 MG TABLET PO SCH (20:08)
[2019-08-28] MEDS: SOTALOL HCL 80 MG TAB PO SCH (20:33)
[2019-08-28] MEDS: ONDANSETRON INJ 2 MG/ML 2 ML VIAL IV PRN (21:30)
[2019-08-29 04:35] LABS: Basophils # (auto) 0.02 K/uL (0-0.2); Basophils % (auto) 0.3 %; Eosinophils # (auto) 0.05 K/uL (0-0.5); Eosinophils % (auto) 0.7 %; Hematocrit (blood only) 37.4 % (37-47); Immature Granulocytes # (auto) 0.02 K/uL (0.00-0.02); Immature Granulocytes % (auto) 0.3 %; Lymphocytes # (auto) 1.82 K/uL (1.2-3.4); Lymphocytes % (auto) 24.3 %; Mean Corpuscular Hemoglobin 29.5 pg (25-34); Mean Corpuscular Hgb Conc 32.1 g/dL (32-36); Mean Corpuscular Volume 91.9 fL (80-100); Mean Platelet Volume 10.4 fL (7.4-10.4); Monocytes # (auto) 0.78 K/uL (0.11-0.59); Monocytes % (auto) 10.4 %; Neutrophils # (auto) 4.79 K/uL (1.4-6.5); Platelet Count 289 K/uL (130-400); RDW Coefficient of Variation 14.8 % (11.5-14.5); RDW Standard Deviation 49.7 fL (36.4-46.3); Red Blood Count 4.07 M/uL (4.2-5.4); White Blood Count 7.48 K/uL (4.8-10.8)
[2019-08-29 04:56] LABS: BUN Creatinine Ratio 14.5 (10-20); Calcium 8.7 mg/dl (8.5-10.1); Creatinine Clr Calc Pharmacy 42.2 ml/min; Est GFR (African American) 54.9; Est GFR (Non-African American) 47.3; Magnesium 1.9 mg/dl (1.8-2.4); Potassium 3.4 mmol/L (3.5-5.1)
[2019-08-29 05:01] LABS: Phosphorus 3.6 mg/dl (2.5-4.9); Troponin I 0.247 ng/ml (0-0.045)
[2019-08-29] MEDS: POTASSIUM CHLORIDE / WTR 10 MEQ/100 ML PLCT IV SCH ×2 (06:23→07:34)
--- NOTE | 2019-08-29 07:06 | Critical Care Progress Note ---
Date of Service August 29, 2019 Assessment & Plan (1) Influenza A: Reason Critically ill: 79 year old woman with history of CHF and atrial fibrillation here for acute hypoxemic respiratory failure Neuro: Neurologically intact, oriented to person place time and situation Cam ICU negative. Respiratory: CHF exacerbation with pulmonary edema Oxygen requirement decreased Chest XR this morning showing improved pulmonary edema On nasal cannula this morning, breathing much more comfortably Easily conversive lung exam improved Cardiovascular: CHF exacerbation, she has had similar presentations in the past Cardiology consulted recommend converting to oral lasix at this point Echo obtained yesterday, technically difficult study but with no obvious left ventricular dysfunction Likely diastolic dysfunction recommended limiting sodium intake Will resume patient's home doses of norvasc and sotalol Patient currently in A Fib Supplementing Potassium as needed. GI: No concerns at this time Heart healthy DMII diet Renal: Diuresed about 3 L of fluid Creatinine about the same 1.12 today Converting to oral lasix today Hypokalemic at 3.4 in setting of a fib will shoot for >4 will give 40 mEq today ID: Flu positive On tamiflu Continuing Doxycycline for pneumonia Patient stable for downgrade out of ICU. (2) MICHOACANO (obstructive sleep apnea): (3) Hypertensive emergency: (4) Acute respiratory failure with hypoxia: (5) PAF (paroxysmal atrial fibrillation): (6) Hyperlipidemia: (7) Acute pulmonary edema: (8) Diabetes type 2, controlled: (9) Atrial fibrillation: (10) Hypertension: (11) Pulmonary edema: (12) Respiratory failure: (13) Hypoxia: (14) Acute respiratory acidosis: (15) Hypomagnesemia: (16) CHF (congestive heart failure): Supervising Physician Co-Signing Physician Notes Dr. Pimentel was resident physician during care of patient. I separately evaluated patient for villa portions of the history and the exam. I was present during the critical portion of medical decision making, and I discussed the case with the resident. I generally agree with the findings and plan. Patient is significantly improved. Patient's home Norvasc dose is 5 mg it was entered as 10 mg, we will convert accordingly. We will also prescribe additional potassium chloride: 40 mEq to take by mouth. She is stable for downgrade and transfer out of the ICU. Subjective Akua is resting comfortably in bed and feeling much better today than yesterday she tells me. She is breathing much easier and has no complaints or questions. Declines any cough, fever, chills, chest pain, endorses some shortness of breath though better, no nausea vomiting, diarrhea, or abdominal pain. Review of Systems Review of Systems: All systems reviewed & are unremarkable except as noted in HPI & below Physical Exam Physical Exam: Constitutional: Well appearing 79 year old woman, appears stated age no apparent distress Eyes: Anicteric sclerae, EOMMI bilaterally, Respiratory: Coarse lung sounds, breathing without much distress on BiPAP, No accessory muscle use Cardiovascular: Irregular rate irregular rhythm, no murmurs, skips, rubs or gallops appreciated GI: Abdomen soft nontender Skin: Warm and well perfused, no bruising or skin breakdown Neuro: Alert, awake, oriented x4, no focal abnormalities Results & Data Vital Signs (Past 12 Hours) Vital Signs Temp Pulse Resp BP Pulse Ox 08/29/19 06:04 79 15 91/61 L 97 08/29/19 06:00 77 15 96 08/29/19 05:50 74 15 96 08/29/19 05:40 79 14 97 08/29/19 05:30 76 15 96 08/29/19 05:20 78 14 97 08/29/19 05:10 72 14 97 08/29/19 05:04 78 15 102/69 97 08/29/19 05:00 73 15 97 08/29/19 04:50 83 19 97 08/29/19 04:40 81 16 98 08/29/19 04:30 81 18 98 08/29/19 04:20 36.7 C 77 18 98 08/29/19 04:10 81 24 98 08/29/19 04:04 76 15 96/55 L 99 08/29/19 04:00 75 15 98 08/29/19 03:50 74 17 98 08/29/19 03:40 70 16 99 08/29/19 03:30 72 16 98 08/29/19 03:20 79 16 98 08/29/19 03:10 70 14 99 08/29/19 03:04 79 13 98/55 L 100 08/29/19 03:00 77 13 100 08/29/19 02:50 74 15 98 08/29/19 02:40 75 16 98 08/29/19 02:30 67 15 98 08/29/19 02:20 79 15 98 08/29/19 02:10 74 16 98 08/29/19 02:04 73 16 90/66 L 98 08/29/19 02:00 77 16 98 08/29/19 01:50 78 16 98 08/29/19 01:40 77 15 99 08/29/19 01:30 80 13 99 08/29/19 01:20 76 15 97 08/29/19 01:10 77 16 98 08/29/19 01:04 81 17 97/64 L 97 08/29/19 01:00 80 16 98 08/29/19 00:50 84 17 97 08/29/19 00:41 78 17 97 08/29/19 00:30 86 17 97 08/29/19 00:20 82 17 97 08/29/19 00:10 82 15 98 08/29/19 00:04 77 15 108/61 98 08/29/19 00:00 79 16 98 08/28/19 23:50 88 16 97 08/28/19 23:40 76 16 97 08/28/19 23:30 83 19 97 08/28/19 23:20 88 16 97 08/28/19 23:10 83 16 97 08/28/19 23:04 92 H 17 115/63 97 08/28/19 23:00 84 18 97 08/28/19 22:50 78 17 97 08/28/19 22:40 93 H 17 97 08/28/19 22:30 79 17 96 08/28/19 22:20 82 22 96 08/28/19 22:10 84 18 96 08/28/19 22:07 87 08/28/19 22:05 89 18 96 08/28/19 22:04 89 18 112/55 L 96 08/28/19 22:00 83 19 96 08/28/19 21:50 76 18 96 08/28/19 21:40 81 18 97 08/28/19 21:30 87 19 97 08/28/19 21:20 72 19 91 08/28/19 21:10 84 21 91 08/28/19 21:04 94 H 18 153/98 H 97 08/28/19 21:00 65 23 96 08/28/19 20:50 82 18 91 08/28/19 20:40 76 21 95 08/28/19 20:30 74 22 96 08/28/19 20:20 73 23 98 12/29/19 20:10 74 18 94 08/28/19 20:04 82 21 130/69 97 08/28/19 20:00 36.7 C 85 21 97 08/28/19 19:50 82 21 95 08/28/19 19:40 77 19 94 08/28/19 19:30 86 20 97 08/28/19 19:20 79 22 97 08/28/19 19:10 82 25 H 98 Resident Activity Tracking Resident Involvement: Resident Care Provided Care Provided: Adult Hospital Medicine (1) Pulmonary edema Chronicity: acute Qualified Code(s): J81.0 - Acute pulmonary edema (2) Respiratory failure Chronicity: unspecified Respiratory failure complication: hypoxia Qualified Code(s): J96.91 - Respiratory failure, unspecified with hypoxia
--- NOTE | 2019-08-29 07:29 | XRay Report ---
XR chest 1V portable CLINICAL HISTORY: f/u dyspnea COMPARISON STUDY: 08/28/2019 FINDINGS: Improving findings of pulmonary edema. Residual infiltrative changes left base. Mild chroni c elevation right hemidiaphragm. Bilateral shoulder arthroplasties. IMPRESSION: Improving pulmonary edema. ACT 112: Negative or not required by law. The above report was generated using voice recognition software. It may contain grammatical, syntax or spelling errors. Electronically signed by: Delano Fish M.D. 08/29/2019 7:27 AM
[2019-08-29] MEDS: INSULIN ASPART 100 UNITS/ML 3 ML PEN SC SCH ×4 (07:56→20:47)
[2019-08-29] MEDS: PANTOprazole 40 MG TAB PO SCH (07:57)
[2019-08-29] MEDS: FENOFIBRATE NANOCRYSTALLIZED 145 MG TABLET PO SCH (07:57)
[2019-08-29] MEDS: APIXABAN 5 MG TABLET PO SCH ×2 (07:57→20:46)
[2019-08-29] MEDS: DOXYCYCLINE HYCLATE 100 MG CAP PO SCH ×2 (07:58→20:46)
[2019-08-29] MEDS: SOTALOL HCL 80 MG TAB PO SCH ×2 (07:58→20:46)
[2019-08-29] MEDS: PRAVASTATIN SOD 40 MG TAB PO SCH (07:58)
[2019-08-29] MEDS: MULTIVITAMIN TAB PO SCH (07:58)
[2019-08-29] MEDS: CLOTRIMAZOLE/BETAMETHASONE CR 15 GM TUBE EXT SCH ×2 (08:00→20:47)
[2019-08-29] MEDS: LOSARTAN POTASSIUM 50 MG TAB PO SCH (08:00)
[2019-08-29] MEDS: FUROSEMIDE 40 MG in SYRINGE 0 ML IV SCH (08:06)
[2019-08-29] MEDS: OSELTAMIVIR PHOSPHATE SUSP 30 MG/5 ML UDP PO SCH ×2 (08:06→20:52)
[2019-08-29] MEDS: METOPROLOL SUCC 50MG EXT REL TAB PO SCH (08:06)
[2019-08-29] MEDS: PREGABALIN 100 MG CAP PO SCH ×3 (08:06→20:46)
--- NOTE | 2019-08-29 08:50 | Cardiology Progress Note ---
Date of Service August 29, 2019 Assessment & Plan (1) PAF (paroxysmal atrial fibrillation): (2) CHF (congestive heart failure): (3) Diabetes type 2, controlled: Think we can discontinue the patient's IV Lasix and switch her over to oral. She can also be transferred to a regular telemetry floor. She is influenza positive and precautions have been taken. 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 Subjective The patient is sitting in a chair. She is comfortable and feeling better. She admits that she has not been taking her Lasix after traveling Review of Systems Review of Systems: All systems reviewed & are unremarkable except as noted in HPI & below Nothing additional to add Physical Exam Physical Exam: General: no acute distress and stated age Head: normocephalic, no masses, lesions, tenderness or abnormalities Eyes: conjunctiva are pink and non-injected, sclera clear Neck: supple, no adenopathy, no bruits, normal jugular venous pulse, no hepatojugular reflux Chest: normal shape and normal respiratory effort Lungs: clear to auscultation and percussion Cardiac Exam: - regular rate & rhythm, no murmurs gallops or rubs - normal S1, normal S2 Pulses: 2(+) throughout Abdomen: abdomen soft, non-tender, no abnormal masses and no hepatosplenomegaly Musculoskeletal: no gait disturbance, no joint inflammation, no deforming arthritis Extremities: no edema and no cyanosis Neuro: grossly normal exam Results & Data Vital Signs (Past 12 Hours) Vital Signs Temp Pulse Resp BP Pulse Ox 08/29/19 06:04 79 15 91/61 L 97 08/29/19 06:00 77 15 96 08/29/19 05:50 74 15 96 08/29/19 05:40 79 14 97 08/29/19 05:30 76 15 96 08/29/19 05:20 78 14 97 08/29/19 05:10 72 14 97 08/29/19 05:04 78 15 102/69 97 08/29/19 05:00 73 15 97 08/29/19 04:50 83 19 97 08/29/19 04:40 81 16 98 08/29/19 04:30 81 18 98 08/29/19 04:20 36.7 C 77 18 98 08/29/19 04:10 81 24 98 12/30/19 04:04 76 15 96/55 L 99 08/29/19 04:00 75 15 98 08/29/19 03:50 74 17 98 08/29/19 03:40 70 16 99 08/29/19 03:30 72 16 98 08/29/19 03:20 79 16 98 08/29/19 03:10 70 14 99 08/29/19 03:04 79 13 98/55 L 100 08/29/19 03:00 77 13 100 08/29/19 02:50 74 15 98 08/29/19 02:40 75 16 98 08/29/19 02:30 67 15 98 08/29/19 02:20 79 15 98 08/29/19 02:10 74 16 98 08/29/19 02:04 73 16 90/66 L 98 08/29/19 02:00 77 16 98 08/29/19 01:50 78 16 98 08/29/19 01:40 77 15 99 08/29/19 01:30 80 13 99 08/29/19 01:20 76 15 97 08/29/19 01:10 77 16 98 08/29/19 01:04 81 17 97/64 L 97 08/29/19 01:00 80 16 98 08/29/19 00:50 84 17 97 08/29/19 00:41 78 17 97 08/29/19 00:30 86 17 97 08/29/19 00:20 82 17 97 08/29/19 00:10 82 15 98 08/29/19 00:04 77 15 108/61 98 08/29/19 00:00 79 16 98 08/28/19 23:50 88 16 97 08/28/19 23:40 76 16 97 08/28/19 23:30 83 19 97 08/28/19 23:20 88 16 97 08/28/19 23:10 83 16 97 08/28/19 23:04 92 H 17 115/63 97 08/28/19 23:00 84 18 97 08/28/19 22:50 78 17 97 08/28/19 22:40 93 H 17 97 08/28/19 22:30 79 17 96 08/28/19 22:20 82 22 96 08/28/19 22:10 84 18 96 08/28/19 22:07 87 08/28/19 22:05 89 18 96 08/28/19 22:04 89 18 112/55 L 96 08/28/19 22:00 83 19 96 08/28/19 21:50 76 18 96 08/28/19 21:40 81 18 97 08/28/19 21:30 87 19 97 08/28/19 21:20 72 19 91 08/28/19 21:10 84 21 91 08/28/19 21:04 94 H 18 153/98 H 97 08/28/19 21:00 65 23 96 08/28/19 20:50 82 18 91 Laboratory Results Laboratory Results - last 24 hr 08/28/19 08/28/19 08/28/19 09:49 09:49 09:49 WBC 15.67 H RBC 4.39 Hgb 13.2 POC Hgb Hct 41.5 POC Hct MCV 94.5 MCH 30.1 MCHC 31.8 L RDW Std Deviation 49.6 H RDW Coeff of Kirk 14.6 H Plt Count 339 MPV 10.0 Immature Gran % (Auto) 0.4 Neut % (Auto) 81.6 Lymph % (Auto) 10.1 Mercer % (Auto) 4.9 Eos % (Auto) 2.6 Baso % (Auto) 0.4 Immature Gran # (Auto) 0.07 H Neut # (Auto) 12.78 H Lymph # (Auto) 1.59 Mercer # (Auto) 0.77 H Eos # (Auto) 0.40 Baso # (Auto) 0.06 ESR PT 11.4 INR 1.1 APTT 29.1 PTT Ratio 1.1 VBG pH VBG pCO2 VBG pO2 VBG HCO3 VBG O2 Saturation VBG Base Excess Barometric Pressure POC Sodium Sodium 137 POC Potassium Potassium 4.3 POC Chloride Chloride 105 Carbon Dioxide 29 POC Total CO2 Anion Gap 3.0 POC Anion Gap POC BUN BUN 13 Creatinine 1.00 POC Creatinine Est Cr Clr Drug Dosing Not Reportable Est GFR ( Amer) 58.7 Est GFR (Non-Af Amer) 50.6 BUN/Creatinine Ratio 12.7 Glucose 179 H POC Glucose POC Glucose (other) Calcium 9.4 POC Ioniz Calcium Wilfredo Phosphorus Magnesium 1.7 L Total Bilirubin 0.7 AST 24 ALT 20 Alkaline Phosphatase 67 Troponin I < 0.015 C-Reactive Protein NT-Pro-B Natriuret Pep Total Protein 7.6 Albumin 3.8 Globulin 3.8 Albumin/Globulin Ratio 1.0 Procalcitonin Urine Color Urine Appearance Urine pH Ur Specific [place] Urine Protein Urine Glucose (UA) Urine Ketones Urine Blood Urine Nitrite Urine Bilirubin Urine Urobilinogen Ur Leukocyte Esterase Urine WBC (Auto) Urine RBC (Auto) U Hyaline Cast (Auto) U Epithel Cells (Auto) Urine Bacteria (Auto) Nasal Screen MRSA (PCR) Influenza Type A (PCR) Influenza Type B (PCR) Urine Legionella Ag Mycoplasma pneumon IgM 08/28/19 08/28/19 08/28/19 09:49 09:51 10:10 WBC RBC Hgb POC Hgb 15.0 Hct POC Hct 44 MCV MCH MCHC RDW Std Deviation RDW Coeff of Kirk Plt Count MPV Immature Gran % (Auto) Neut % (Auto) Lymph % (Auto) Mer[place] % (Auto) Eos % (Auto) Baso % (Auto) Immature Gran # (Auto) Neut # (Auto) Lymph # (Auto) Mercer # (Auto) Eos # (Auto) Baso # (Auto) ESR PT INR APTT PTT Ratio VBG pH 7.25 L VBG pCO2 58 H VBG pO2 42 VBG HCO3 25 VBG O2 Saturation 69.5 VBG Base Excess -2.9 Barometric Pressure 735.5 POC Sodium 138 Sodium POC Potassium 4.2 Potassium POC Chloride 104 Chloride Carbon Dioxide POC Total CO2 25 Anion Gap POC Anion Gap 14.0 L POC BUN 13 BUN Creatinine POC Creatinine 0.9 Est Cr Clr Drug Dosing Est GFR ( Amer) Est GFR (Non-Af Amer) BUN/Creatinine Ratio Glucose POC Glucose POC Glucose (other) 172 H Calcium POC Ioniz Calcium Wilfredo 1.19 Phosphorus Magnesium Total Bilirubin AST ALT Alkaline Phosphatase Troponin I C-Reactive Protein NT-Pro-B Natriuret Pep Total Protein Albumin Globulin Albumin/Globulin Ratio Procalcitonin Urine Color Yellow Urine Appearance Clear Urine pH 7.0 Ur Specific [place] 1.008 Urine Protein 1+ H Urine Glucose (UA) Trace H Urine Ketones Negative Urine Blood Trace H Urine Nitrite Negative Urine Bilirubin Negative Urine Urobilinogen Negative Ur Leukocyte Esterase Negative Urine WBC (Auto) 0 Urine RBC (Auto) 0-4 U Hyaline Cast (Auto) 0 U Epithel Cells (Auto) 5-10 H Urine Bacteria (Auto) Negative Nasal Screen MRSA (PCR) Influenza Type A (PCR) Influenza Type B (PCR) Urine Legionella Ag Mycoplasma pneumon IgM 08/28/19 08/28/19 08/28/19 12:16 12:34 12:34 WBC RBC Hgb POC Hgb Hct POC Hct MCV MCH MCHC RDW Std Deviation RDW Coeff of Kirk Plt Count MPV Immature Gran % (Auto) Neut % (Auto) Lymph % (Auto) [place] % (Auto) Eos % (Auto) Baso % (Auto) Immature Gran # (Auto) Neut # (Auto) Lymph # (Auto) Mercer # (Auto) Eos # (Auto) Baso # (Auto) ESR 37 H PT INR APTT PTT Ratio VBG pH VBG pCO2 VBG pO2 VBG HCO3 VBG O2 Saturation VBG Base Excess Barometric Pressure POC Sodium Sodium POC Potassium Potassium POC Chloride Chloride Carbon Dioxide POC Total CO2 Anion Gap POC Anion Gap POC BUN BUN Creatinine POC Creatinine Est Cr Clr Drug Dosing Est GFR ( Amer) Est GFR (Non-Af Amer) BUN/Creatinine Ratio Glucose POC Glucose 183 H POC Glucose (other) Calcium POC Ioniz Calcium Wilfredo Phosphorus 2.4 L Magnesium Total Bilirubin AST ALT Alkaline Phosphatase Troponin I C-Reactive Protein 3.17 H NT-Pro-B Natriuret Pep 2522 H Total Protein Albumin Globulin Albumin/Globulin Ratio Procalcitonin Urine Color Urine Appearance Urine pH Ur Specific [place] Urine Protein Urine Glucose (UA) Urine Ketones Urine Blood Urine Nitrite Urine Bilirubin Urine Urobilinogen Ur Leukocyte Esterase Urine WBC (Auto) Urine RBC (Auto) U Hyaline Cast (Auto) U Epithel Cells (Auto) Urine Bacteria (Auto) Nasal Screen MRSA (PCR) Influenza Type A (PCR) Influenza Type B (PCR) Urine Legionella Ag Mycoplasma pneumon IgM 08/28/19 08/28/19 08/28/19 12:34 13:15 13:15 WBC RBC Hgb POC Hgb Hct POC Hct MCV MCH MCHC RDW Std Deviation RDW Coeff of Kirk Plt Count MPV Immature Gran % (Auto) Neut % (Auto) Lymph % (Auto) [place] % (Auto) Eos % (Auto) Baso % (Auto) Immature Gran # (Auto) Neut # (Auto) Lymph # (Auto) Mercer # (Auto) Eos # (Auto) Baso # (Auto) ESR PT INR APTT PTT Ratio VBG pH VBG pCO2 VBG pO2 VBG HCO3 VBG O2 Saturation VBG Base Excess Barometric Pressure POC Sodium Sodium POC Potassium Potassium POC Chloride Chloride Carbon Dioxide POC Total CO2 Anion Gap POC Anion Gap POC BUN BUN Creatinine POC Creatinine Est Cr Clr Drug Dosing Est GFR ( Amer) Est GFR (Non-Af Amer) BUN/Creatinine Ratio Glucose POC Glucose POC Glucose (other) Calcium POC Ioniz Calcium Wilfredo Phosphorus Magnesium Total Bilirubin AST ALT Alkaline Phosphatase Troponin I C-Reactive Protein NT-Pro-B Natriuret Pep Total Protein Albumin Globulin Albumin/Globulin Ratio Procalcitonin 0.17 Urine Color Urine Appearance Urine pH Ur Specific [place] Urine Protein Urine Glucose (UA) Urine Ketones Urine Blood Urine Nitrite Urine Bilirubin Urine Urobilinogen Ur Leukocyte Esterase Urine WBC (Auto) Urine RBC (Auto) U Hyaline Cast (Auto) U Epithel Cells (Auto) Urine Bacteria (Auto) Nasal Screen MRSA (PCR) Influenza Type A (PCR) Pos for Influ A A* Influenza Type B (PCR) Neg for Influ B Urine Legionella Ag Pending Mycoplasma pneumon IgM 08/28/19 08/28/19 08/28/19 15:40 15:41 16:44 WBC RBC Hgb POC Hgb Hct POC Hct MCV MCH MCHC RDW Std Deviation RDW Coeff of Kirk Plt Count MPV Immature Gran % (Auto) Neut % (Auto) Lymph % (Auto) [place] % (Auto) Eos % (Auto) Baso % (Auto) Immature Gran # (Auto) Neut # (Auto) Lymph # (Auto) [place]cer # (Auto) Eos # (Auto) Baso # (Auto) ESR PT INR APTT PTT Ratio VBG pH VBG pCO2 VBG pO2 VBG HCO3 VBG O2 Saturation VBG Base Excess Barometric Pressure POC Sodium Sodium POC Potassium Potassium POC Chloride Chloride Carbon Dioxide POC Total CO2 Anion Gap POC Anion Gap POC BUN BUN Creatinine POC Creatinine Est Cr Clr Drug Dosing Est GFR ( Amer) Est GFR (Non-Af Amer) BUN/Creatinine Ratio Glucose POC Glucose 146 H POC Glucose (other) Calcium POC Ioniz Calcium Wilfredo Phosphorus Magnesium Total Bilirubin AST ALT Alkaline Phosphatase Troponin I 0.369 H* C-Reactive Protein NT-Pro-B Natriuret Pep Total Protein Albumin Globulin Albumin/Globulin Ratio Procalcitonin Urine Color Urine Appearance Urine pH Ur Specific [place] Urine Protein Urine Glucose (UA) Urine Ketones Urine Blood Urine Nitrite Urine Bilirubin Urine Urobilinogen Ur Leukocyte Esterase Urine WBC (Auto) Urine RBC (Auto) U Hyaline Cast (Auto) U Epithel Cells (Auto) Urine Bacteria (Auto) Nasal Screen MRSA (PCR) Influenza Type A (PCR) Influenza Type B (PCR) Urine Legionella Ag Mycoplasma pneumon IgM Pending 08/28/19 08/28/19 08/29/19 20:13 Unknown 04:15 WBC 7.48 RBC 4.07 L Hgb 12.0 POC Hgb Hct 37.4 POC Hct MCV 91.9 MCH 29.5 MCHC 32.1 RDW Std Deviation 49.7 H RDW Coeff of Kirk 14.8 H Plt Count 289 MPV 10.4 Immature Gran % (Auto) 0.3 Neut % (Auto) 64.0 Lymph % (Auto) 24.3 [place] % (Auto) 10.4 Eos % (Auto) 0.7 Baso % (Auto) 0.3 Immature Gran # (Auto) 0.02 Neut # (Auto) 4.79 Lymph # (Auto) 1.82 Mercer # (Auto) 0.78 H Eos # (Auto) 0.05 Baso # (Auto) 0.02 ESR PT INR APTT PTT Ratio VBG pH VBG pCO2 VBG pO2 VBG HCO3 VBG O2 Saturation VBG Base Excess Barometric Pressure POC Sodium Sodium POC Potassium Potassium POC Chloride Chloride Carbon Dioxide POC Total CO2 Anion Gap POC Anion Gap POC BUN BUN Creatinine POC Creatinine Est Cr Clr Drug Dosing Est GFR ( Amer) Est GFR (Non-Af Amer) BUN/Creatinine Ratio Glucose POC Glucose 146 H POC Glucose (other) Calcium POC Ioniz Calcium Wilfredo Phosphorus Magnesium Total Bilirubin AST ALT Alkaline Phosphatase Troponin I C-Reactive Protein NT-Pro-B Natriuret Pep Total Protein Albumin Globulin Albumin/Globulin Ratio Procalcitonin Urine Color Urine Appearance Urine pH Ur Specific [place] Urine Protein Urine Glucose (UA) Urine Ketones Urine Blood Urine Nitrite Urine Bilirubin Urine Urobilinogen Ur Leukocyte Esterase Urine WBC (Auto) Urine RBC (Auto) U Hyaline Cast (Auto) U Epithel Cells (Auto) Urine Bacteria (Auto) Nasal Screen MRSA (PCR) Negative Influenza Type A (PCR) Influenza Type B (PCR) Urine Legionella Ag Mycoplasma pneumon IgM 08/29/19 08/29/19 04:15 06:16 WBC RBC Hgb POC Hgb Hct POC Hct MCV MCH MCHC RDW Std Deviation RDW Coeff of Kirk Plt Count MPV Immature Gran % (Auto) Neut % (Auto) Lymph % (Auto) [place] % (Auto) Eos % (Auto) Baso % (Auto) Immature Gran # (Auto) Neut # (Auto) Lymph # (Auto) Mercer # (Auto) Eos # (Auto) Baso # (Auto) ESR PT INR APTT PTT Ratio VBG pH VBG pCO2 VBG pO2 VBG HCO3 VBG O2 Saturation VBG Base Excess Barometric Pressure POC Sodium Sodium 137 POC Potassium Potassium 3.4 L D POC Chloride Chloride 102 Carbon Dioxide 29 POC Total CO2 Anion Gap 6.0 POC Anion Gap POC BUN BUN 16 Creatinine 1.12 POC Creatinine Est Cr Clr Drug Dosing 42.2 Est GFR ( Amer) 54.9 Est GFR (Non-Af Amer) 47.3 BUN/Creatinine Ratio 14.5 Glucose 121 H POC Glucose 112 H POC Glucose (other) Calcium 8.7 POC Ioniz Calcium Wilfredo Phosphorus 3.6 D Magnesium 1.9 Total Bilirubin AST ALT Alkaline Phosphatase Troponin I 0.247 H* C-Reactive Protein NT-Pro-B Natriuret Pep Total Protein Albumin Globulin Albumin/Globulin Ratio Procalcitonin Urine Color Urine Appearance Urine pH Ur Specific [place] Urine Protein Urine Glucose (UA) Urine Ketones Urine Blood Urine Nitrite Urine Bilirubin Urine Urobilinogen Ur Leukocyte Esterase Urine WBC (Auto) Urine RBC (Auto) U Hyaline Cast (Auto) U Epithel Cells (Auto) Urine Bacteria (Auto) Nasal Screen MRSA (PCR) Influenza Type A (PCR) Influenza Type B (PCR) Urine Legionella Ag Mycoplasma pneumon IgM Medications Administered Current Inpatient Medications Albuterol (Ventolin Hfa) 2 puffs INH Q6H PRN PRN Reason: Shortness Of Breath Stop: 09/27/19 12:09 Amlodipine Besylate (Norvasc) 10 mg PO QAM [facility] Stop: 09/28/19 08:59 Last Admin: 08/29/19 08:00 Dose: 10 mg Documented by: Apixaban (Eliquis) 5 mg PO BID [facility] Stop: 09/27/19 20:59 Last Admin: 08/29/19 07:57 Dose: 5 mg Documented by: Betamethasone/Clotrimazole (Lotrisone 1/0.5%) 1 appln EXT BID [facility] Stop: 09/27/19 20:59 Last Admin: 08/29/19 08:00 Dose: Not Given Documented by: Budesonide/Formoterol Fumarate (Symbicort 160mcg/4.5mcg) 2 puffs INH BID PRN PRN Reason: Shortness Of Breath Stop: 09/27/19 12:09 Dextrose (Dextrose 50%) 25 - 50 ml IV UD PRN; Protocol PRN Reason: Hypoglycemia Protocol Stop: 09/27/19 11:41 Doxycycline Hyclate (Vibramycin) 100 mg PO BID [facility] Stop: 09/02/19 12:59 Last Admin: 08/29/19 07:58 Dose: 100 mg Documented by: Fenofibrate (Tricor) 145 mg PO DAILY [facility] Stop: 09/28/19 08:59 Last Admin: 08/29/19 07:57 Dose: 145 mg Documented by: Furosemide (Lasix) 40 mg PO BID17 [facility] Stop: 09/28/19 08:59 Glucagon (Glucagen) 1 mg SQ UD PRN; Protocol PRN Reason: Hypoglycemia Protocol Stop: 09/27/19 11:41 Glucose (Dex4 Glucose) 4 - 8 tabs PO UD PRN; Protocol PRN Reason: Hypoglycemia Protocol Stop: 09/27/19 11:41 Glucose (Glucose 40%) 15 - 30 gm PO UD PRN; Protocol PRN Reason: Hypoglycemia Protocol Stop: 09/27/19 11:41 Promethazine HCl 12.5 mg/ (Sodium Chloride) 50.5 mls @ 202 mls/hr IV Q6H PRN PRN Reason: Nausea And Vomiting Stop: 09/27/19 14:45 Last Infusion: 08/28/19 17:15 Dose: Infused Documented by: Insulin Aspart (Novolog Flexpen) 0 units SC ACHS [facility] Stop: 09/27/19 16:29 Last Admin: 08/29/19 07:56 Dose: 1 units Documented by: Losartan Potassium (Cozaar) 100 mg PO DAILY [facility] Stop: 09/28/19 08:59 Last Admin: 08/29/19 08:00 Dose: 100 mg Documented by: Metoprolol Succinate (Toprol Xl) 100 mg PO QAM [facility] Stop: 09/28/19 08:59 Last Admin: 08/29/19 08:06 Dose: 100 mg Documented by: Miscellaneous (Carbohydrates For Hypoglycemia) 15 - 30 gm PO UD PRN PRN Reason: Hypoglycemia Protocol Stop: 09/27/19 11:41 Montelukast Sodium (Singulair) 10 mg PO HS [facility] Stop: 09/27/19 20:59 Last Admin: 08/28/19 20:08 Dose: 10 mg Documented by: Multivitamins (Multivitamin Tab) 1 tab PO DAILY [facility] Stop: 09/28/19 08:59 Last Admin: 08/29/19 07:58 Dose: 1 tab Documented by: Ondansetron HCl (Zofran) 4 mg IV Q6H PRN PRN Reason: Nausea Stop: 09/27/19 20:59 Last Admin: 08/28/19 21:30 Dose: 4 mg Documented by: Oseltamivir Phosphate (Tamiflu) 30 mg PO BID [facility]; Protocol Stop: 09/02/19 14:59 Last Admin: 08/29/19 08:06 Dose: 30 mg Documented by: Pantoprazole Sodium (Protonix) 40 mg PO DAILY [facility] Stop: 09/28/19 08:59 Last Admin: 08/29/19 07:57 Dose: 40 mg Documented by: Pravastatin Sodium (Pravachol) 40 mg PO DAILY [facility] Stop: 09/28/19 08:59 Last Admin: 08/29/19 07:58 Dose: 40 mg Documented by: Pregabalin (Lyrica) 100 mg PO TID [facility] Stop: 09/27/19 13:59 Last Admin: 08/29/19 08:06 Dose: 100 mg Documented by: Sotalol HCl (Betapace) 120 mg PO BID [facility] Stop: 09/27/19 20:59 Last Admin: 08/29/19 07:58 Dose: 120 mg Documented by:
[2019-08-29] MEDS ORDERED: AMLODIPINE BESYLATE 5 MG TAB PO SCH (09:00)
[2019-08-29] MEDS: FUROSEMIDE 40 MG TAB PO SCH ×2 (09:14→17:11)
[2019-08-29] MEDS ORDERED: POTASSIUM CHLORIDE 20 MEQ TABCR PO ONE (11:00)
--- NOTE | 2019-08-29 11:04 | Hospitalist Progress Note ---
Date of Service August 29, 2019 Assessment & Plan (1) Acute pulmonary edema: Has history of CHF likely diastolic given the history of atrial fibrillation Presented with acute pulmonary edema Has been started on intravenous nitroglycerin with improvement Received intravenous Lasix in the ER and will continue 40 mg twice daily Initial troponin has been negative and EKG is in sinus rhythm with controlled rate The patient will be admitted to ICU [facility] [employer] [facility] and cardiology consulted Clinically a lot better today Echo has been difficult to perform and interpret She will be transferred to telemetry unit for continuation of care (2) Atrial fibrillation: She has paroxysmal atrial fibrillation History of atrial fibrillation status post cardioversion in the past Now is in sinus rhythm Has been on Eliquis We will continue sotalol 120 mg twice daily and hold metoprolol for now Metoprolol has been continued (3) Hypertension: History of hypertension on beta-marc, ARB and calcium beta-marc Blood pressure noted to be very high at presentation with systolic more than 200 Has been started on nitroglycerin drip and the blood pressure is coming down We will continue current medications but hold metoprolol for now given acute pulmonary edema Blood pressure is controlled as of today (4) Diabetes type 2, controlled: We will hold metformin Blood sugar AC at bedtime and SSI (5) Respiratory failure: Presented with pulmonary edema with respiratory failure Noted to have acidosis at presentation Expected to improve (6) CHF (congestive heart failure): History of congestive heart failure likely diastolic We will get an echocardiogram; technically limited study with difficult reading but grossly unremarkable IV Lasix has been changed to oral Clinically much improved (7) Hyperlipidemia: Continue current medications DVT prophylaxis Continue Eliquis CODE STATUS Full Discussed with the family members in detail (8) Influenza A: Diagnosed following admission Has been on Tamiflu Clinically much better Subjective 08/29 The patient was seen and examined in ICU She was admitted with acute pulmonary edema yesterday and noted to have flu positive Clinically a lot better today with profuse diuresis Denies any chest pain and/or palpitation Remains hemodynamically stable Review of Systems Review of Systems: All systems reviewed and are unremarkable except as noted below Respiratory: + cough; no dyspnea Cardiovascular: no chest pain Physical Exam Physical Exam: Sitting on a chair without any acute symptoms Constitutional: well developed, well nourished, + acute distress, + ill appearing and + obese Eyes: PERRL, conjunctivae normal, anicteric sclerae ENMT: external ear and nose normal, oropharynx normal Neck: trachea midline, no thyromegaly Respiratory: + respiratory distress and + labored breathing Auscultation: + breath sounds absent and + crackles (Bilaterally at the bases) Cardiovascular: Rate/Rhythm: regular rate and regular rhythm Heart Sounds: no murmur Extremities: + pedal edema (Trace edema bilaterally, slightly more on the right) Gastrointestinal (Abdomen): Inspection/Auscultation: abdomen normal to inspection and normal bowel sounds Musculoskeletal: no cyanosis or clubbing, extremities motor strength 5/5 Neurologic: Alert, awake and oriented x3. No focal sensory and motor deficit appreciated Lymphatic: no cervical or axillary lymphadenopathy Results & Data Vital Signs (Past 12 Hours) Vital Signs Temp Pulse Resp BP Pulse Ox 08/29/19 09:04 73 17 08/29/19 08:04 37.0 C 86 18 102/63 98 08/29/19 07:04 80 17 117/69 100 08/29/19 06:04 79 15 91/61 L 97 08/29/19 06:00 77 15 96 08/29/19 05:50 74 15 96 08/29/19 05:40 79 14 97 08/29/19 05:30 76 15 96 08/29/19 05:20 78 14 97 08/29/19 05:10 72 14 97 08/29/19 05:04 78 15 102/69 97 08/29/19 05:00 73 15 97 08/29/19 04:50 83 19 97 08/29/19 04:40 81 16 98 08/29/19 04:30 81 18 98 08/29/19 04:20 36.7 C 77 18 98 08/29/19 04:10 81 24 98 08/29/19 04:04 76 15 96/55 L 99 08/29/19 04:00 75 15 98 08/29/19 03:50 74 17 98 08/29/19 03:40 70 16 99 08/29/19 03:30 72 16 98 08/29/19 03:20 79 16 98 08/29/19 03:10 70 14 99 08/29/19 03:04 79 13 98/55 L 100 08/29/19 03:00 77 13 100 08/29/19 02:50 74 15 98 08/29/19 02:40 75 16 98 08/29/19 02:30 67 15 98 08/29/19 02:20 79 15 98 08/29/19 02:10 74 16 98 08/29/19 02:04 73 16 90/66 L 98 08/29/19 02:00 77 16 98 08/29/19 01:50 78 16 98 08/29/19 01:40 77 15 99 08/29/19 01:30 80 13 99 08/29/19 01:20 76 15 97 08/29/19 01:10 77 16 98 08/29/19 01:04 81 17 97/64 L 97 08/29/19 01:00 80 16 98 08/29/19 00:50 84 17 97 08/29/19 00:41 78 17 97 08/29/19 00:30 86 17 97 08/29/19 00:20 82 17 97 08/29/19 00:10 82 15 98 08/29/19 00:04 77 15 108/61 98 08/29/19 00:00 79 16 98 08/28/19 23:50 88 16 97 08/28/19 23:40 76 16 97 08/28/19 23:30 83 19 97 08/28/19 23:20 88 16 97 08/28/19 23:10 83 16 97 08/28/19 23:04 92 H 17 115/63 97 08/28/19 23:00 84 18 97 Laboratory Results Short CBC 08/29/19 Range/Units 04:15 WBC 7.48 (4.8-10.8) K/uL Hgb 12.0 (12.0-16.0) g/dL Hct 37.4 (37-47) % Plt Count 289 (130-400) K/uL BMP 08/29/19 04:15 Sodium 137 Potassium 3.4 L D Chloride 102 Carbon Dioxide 29 BUN 16 Creatinine 1.12 Glucose 121 H Calcium 8.7 Cardiac Enzymes 08/28/19 08/29/19 Range/Units 15:41 04:15 Troponin I 0.369 H* 0.247 H* (0-0.045) ng/ml Medications Administered Current Inpatient Medications Albuterol (Ventolin Hfa) 2 puffs INH Q6H PRN PRN Reason: Shortness Of Breath Stop: 09/27/19 12:09 Amlodipine Besylate (Norvasc) 5 mg PO QAM [facility] Stop: 09/29/19 08:59 Apixaban (Eliquis) 5 mg PO BID [facility] Stop: 09/27/19 20:59 Last Admin: 08/29/19 07:57 Dose: 5 mg Documented by: Betamethasone/Clotrimazole (Lotrisone 1/0.5%) 1 appln EXT BID [facility] Stop: 09/27/19 20:59 Last Admin: 08/29/19 08:00 Dose: Not Given Documented by: Budesonide/Formoterol Fumarate (Symbicort 160mcg/4.5mcg) 2 puffs INH BID PRN PRN Reason: Shortness Of Breath Stop: 09/27/19 12:09 Dextrose (Dextrose 50%) 25 - 50 ml IV UD PRN; Protocol PRN Reason: Hypoglycemia Protocol Stop: 09/27/19 11:41 Doxycycline Hyclate (Vibramycin) 100 mg PO BID [facility] Stop: 09/02/19 12:59 Last Admin: 08/29/19 07:58 Dose: 100 mg Documented by: Fenofibrate (Tricor) 145 mg PO DAILY [facility] Stop: 09/28/19 08:59 Last Admin: 08/29/19 07:57 Dose: 145 mg Documented by: Furosemide (Lasix) 40 mg PO BID17 [facility] Stop: 09/28/19 09:29 Last Admin: 08/29/19 09:14 Dose: Not Given Documented by: Glucagon (Glucagen) 1 mg SQ UD PRN; Protocol PRN Reason: Hypoglycemia Protocol Stop: 09/27/19 11:41 Glucose (Dex4 Glucose) 4 - 8 tabs PO UD PRN; Protocol PRN Reason: Hypoglycemia Protocol Stop: 09/27/19 11:41 Glucose (Glucose 40%) 15 - 30 gm PO UD PRN; Protocol PRN Reason: Hypoglycemia Protocol Stop: 09/27/19 11:41 Promethazine HCl 12.5 mg/ (Sodium Chloride) 50.5 mls @ 202 mls/hr IV Q6H PRN PRN Reason: Nausea And Vomiting Stop: 09/27/19 14:45 Last Infusion: 08/28/19 17:15 Dose: Infused Documented by: Insulin Aspart (Novolog Flexpen) 0 units SC ACHS [facility] Stop: 09/27/19 16:29 Last Admin: 08/29/19 07:56 Dose: 1 units Documented by: Losartan Potassium (Cozaar) 100 mg PO DAILY [facility] Stop: 09/28/19 08:59 Last Admin: 08/29/19 08:00 Dose: 100 mg Documented by: Metoprolol Succinate (Toprol Xl) 100 mg PO QAM [facility] Stop: 09/28/19 08:59 Last Admin: 08/29/19 08:06 Dose: 100 mg Documented by: Miscellaneous (Carbohydrates For Hypoglycemia) 15 - 30 gm PO UD PRN PRN Reason: Hypoglycemia Protocol Stop: 09/27/19 11:41 Montelukast Sodium (Singulair) 10 mg PO HS [facility] Stop: 09/27/19 20:59 Last Admin: 08/28/19 20:08 Dose: 10 mg Documented by: Multivitamins (Multivitamin Tab) 1 tab PO DAILY [facility] Stop: 09/28/19 08:59 Last Admin: 08/29/19 07:58 Dose: 1 tab Documented by: Ondansetron HCl (Zofran) 4 mg IV Q6H PRN PRN Reason: Nausea Stop: 09/27/19 20:59 Last Admin: 08/28/19 21:30 Dose: 4 mg Documented by: Oseltamivir Phosphate (Tamiflu) 30 mg PO BID [facility]; Protocol Stop: 09/02/19 14:59 Last Admin: 08/29/19 08:06 Dose: 30 mg Documented by: Pantoprazole Sodium (Protonix) 40 mg PO DAILY [facility] Stop: 09/28/19 08:59 Last Admin: 08/29/19 07:57 Dose: 40 mg Documented by: Potassium Chloride (Klor-Con M20) 40 meq PO NOW ONE Stop: 08/29/19 11:01 Pravastatin Sodium (Pravachol) 40 mg PO DAILY [facility] Stop: 09/28/19 08:59 Last Admin: 08/29/19 07:58 Dose: 40 mg Documented by: Pregabalin (Lyrica) 100 mg PO TID [facility] Stop: 09/27/19 13:59 Last Admin: 08/29/19 08:06 Dose: 100 mg Documented by: Sotalol HCl (Betapace) 120 mg PO BID [facility] Stop: 09/27/19 20:59 Last Admin: 08/29/19 07:58 Dose: 120 mg Documented by: (1) Respiratory failure Chronicity: unspecified Respiratory failure complication: hypoxia Qualified Code(s): J96.91 - Respiratory failure, unspecified with hypoxia
--- NOTE | 2019-08-29 13:52 | Billing Data ---
Date of Service August 29, 2019 Coding Level of Care Code 41114 Subseq Hosp Care Lvl 1
[2019-08-29] MEDS: MONTELUKAST SODIUM 10 MG TABLET PO SCH (20:46)
[2019-08-30] MEDS: METOPROLOL SUCC 50MG EXT REL TAB PO SCH (08:16)
[2019-08-30] MEDS: PRAVASTATIN SOD 40 MG TAB PO SCH (08:16)
[2019-08-30] MEDS: SOTALOL HCL 80 MG TAB PO SCH ×2 (08:16→20:49)
[2019-08-30] MEDS: MULTIVITAMIN TAB PO SCH (08:16)
[2019-08-30] MEDS: PANTOprazole 40 MG TAB PO SCH (08:17)
[2019-08-30] MEDS: LOSARTAN POTASSIUM 50 MG TAB PO SCH (08:17)
[2019-08-30] MEDS: AMLODIPINE BESYLATE 5 MG TAB PO SCH (08:17)
[2019-08-30] MEDS: FENOFIBRATE NANOCRYSTALLIZED 145 MG TABLET PO SCH (08:18)
[2019-08-30] MEDS: FUROSEMIDE 40 MG TAB PO SCH (08:18)
[2019-08-30] MEDS: DOXYCYCLINE HYCLATE 100 MG CAP PO SCH ×2 (08:19→20:32)
[2019-08-30] MEDS: CLOTRIMAZOLE/BETAMETHASONE CR 15 GM TUBE EXT SCH ×2 (08:19→20:35)
[2019-08-30] MEDS: APIXABAN 5 MG TABLET PO SCH ×2 (08:19→20:33)
[2019-08-30] MEDS: OSELTAMIVIR PHOSPHATE SUSP 30 MG/5 ML UDP PO SCH ×2 (08:20→20:43)
[2019-08-30] MEDS: INSULIN ASPART 100 UNITS/ML 3 ML PEN SC SCH ×4 (08:24→20:35)
[2019-08-30] MEDS: PREGABALIN 100 MG CAP PO SCH ×3 (08:25→20:39)
[2019-08-30] MEDS ORDERED: bisacodyL 10 MG SUPP PR STA (09:42)
[2019-08-30 09:52] LABS: Basophils # (auto) 0.05 K/uL (0-0.2); Basophils % (auto) 0.8 %; Eosinophils # (auto) 0.17 K/uL (0-0.5); Eosinophils % (auto) 2.7 %; Hematocrit (blood only) 39.1 % (37-47); Hemoglobin 12.4 g/dL (12.0-16.0); Immature Granulocytes # (auto) 0.02 K/uL (0.00-0.02); Immature Granulocytes % (auto) 0.3 %; Lymphocytes # (auto) 2.95 K/uL (1.2-3.4); Lymphocytes % (auto) 47.5 %; Mean Corpuscular Hemoglobin 29.7 pg (25-34); Mean Corpuscular Hgb Conc 31.7 g/dL (32-36); Mean Corpuscular Volume 93.8 fL (80-100); Mean Platelet Volume 10.4 fL (7.4-10.4); Monocytes # (auto) 0.62 K/uL (0.11-0.59); Neutrophils % (auto) 38.7 %; Platelet Count 306 K/uL (130-400); RDW Coefficient of Variation 15.2 % (11.5-14.5); RDW Standard Deviation 51.5 fL (36.4-46.3); Red Blood Count 4.17 M/uL (4.2-5.4); White Blood Count 6.21 K/uL (4.8-10.8)
[2019-08-30 10:18] LABS: BUN Creatinine Ratio 22.9 (10-20); Calcium 8.9 mg/dl (8.5-10.1); Creatinine Clr Calc Pharmacy 30.4 ml/min; Est GFR (African American) 37.3; Est GFR (Non-African American) 32.2; Magnesium 1.8 mg/dl (1.8-2.4)
[2019-08-30] MEDS: ONDANSETRON INJ 2 MG/ML 2 ML VIAL IV PRN (11:35)
--- NOTE | 2019-08-30 11:48 | Cardiology Progress Note ---
Date of Service August 30, 2019 Assessment & Plan (1) PAF (paroxysmal atrial fibrillation): (2) CHF (congestive heart failure): (3) Diabetes type 2, controlled: The patient could possibly have a UTI. She is going to have a clean-catch urine and most likely would benefit from the start of antibiotics. She is currently in A. fib with a controlled heart rate. I would continue the sotalol for now as she may switch between sinus and the A. fib as long as she remains clinically stable. Subjective The patient is having dysuria and some back discomfort perhaps from a UTI. Review of Systems Review of Systems: All systems reviewed & are unremarkable except as noted in HPI & below Nothing additional to add. Physical Exam Physical Exam: General: no acute distress and stated age Head: normocephalic, no masses, lesions, tenderness or abnormalities Eyes: conjunctiva are pink and non-injected, sclera clear Neck: supple, no adenopathy, no bruits, normal jugular venous pulse, no hepatojugular reflux Chest: normal shape and normal respiratory effort Lungs: clear to auscultation and percussion Cardiac Exam: - regular rate & rhythm, no murmurs gallops or rubs - normal S1, normal S2 Pulses: 2(+) throughout Abdomen: abdomen soft, non-tender, no abnormal masses and no hepatosplenomegaly Musculoskeletal: no gait disturbance, no joint inflammation, no deforming arthritis Extremities: no edema and no cyanosis Neuro: grossly normal exam Results & Data Vital Signs (Past 12 Hours) Vital Signs Temp Pulse Resp BP BP Pulse Ox 08/30/19 11:09 36.6 C 70 18 91/53 L 89 L 08/30/19 07:22 36.9 C 82 19 94/54 L 85 L 08/30/19 03:27 36.7 C 84 19 128/65 91 08/29/19 23:48 36.8 C 74 18 127/67 90 Laboratory Results Laboratory Results - last 24 hr 08/28/19 08/29/19 08/29/19 13:15 16:31 20:29 WBC RBC Hgb Hct MCV MCH MCHC RDW Std Deviation RDW Coeff of Kirk Plt Count MPV Immature Gran % (Auto) Neut % (Auto) Lymph % (Auto) Louisa % (Auto) Eos % (Auto) Baso % (Auto) Immature Gran # (Auto) Neut # (Auto) Lymph # (Auto) Louisa # (Auto) Eos # (Auto) Baso # (Auto) Sodium Potassium Chloride Carbon Dioxide Anion Gap BUN Creatinine Est Cr Clr Drug Dosing Est GFR ( Amer) Est GFR (Non-Af Amer) BUN/Creatinine Ratio Glucose POC Glucose 131 H 113 H Calcium Magnesium Urine Legionella Ag SEE NOTE 08/30/19 08/30/19 08/30/19 07:39 09:28 09:28 WBC 6.21 RBC 4.17 L Hgb 12.4 Hct 39.1 MCV 93.8 MCH 29.7 MCHC 31.7 L RDW Std Deviation 51.5 H RDW Coeff of Kirk 15.2 H Plt Count 306 MPV 10.4 Immature Gran % (Auto) 0.3 Neut % (Auto) 38.7 Lymph % (Auto) 47.5 Louisa % (Auto) 10.0 Eos % (Auto) 2.7 Baso % (Auto) 0.8 Immature Gran # (Auto) 0.02 Neut # (Auto) 2.40 Lymph # (Auto) 2.95 Louisa # (Auto) 0.62 H Eos # (Auto) 0.17 Baso # (Auto) 0.05 Sodium 137 Potassium 4.0 D Chloride 102 Carbon Dioxide 29 Anion Gap 6.0 BUN 35 H D Creatinine 1.54 H D Est Cr Clr Drug Dosing 30.4 Est GFR ( Amer) 37.3 Est GFR (Non-Af Amer) 32.2 BUN/Creatinine Ratio 22.9 H Glucose 219 H POC Glucose 103 H Calcium 8.9 Magnesium 1.8 Urine Legionella Ag 08/30/19 11:34 WBC RBC Hgb Hct MCV MCH MCHC RDW Std Deviation RDW Coeff of Kirk Plt Count MPV Immature Gran % (Auto) Neut % (Auto) Lymph % (Auto) Louisa % (Auto) Eos % (Auto) Baso % (Auto) Immature Gran # (Auto) Neut # (Auto) Lymph # (Auto) Louisa # (Auto) Eos # (Auto) Baso # (Auto) Sodium Potassium Chloride Carbon Dioxide Anion Gap BUN Creatinine Est Cr Clr Drug Dosing Est GFR ( Amer) Est GFR (Non-Af Amer) BUN/Creatinine Ratio Glucose POC Glucose 177 H Calcium Magnesium Urine Legionella Ag Medications Administered Current Inpatient Medications Albuterol (Ventolin Hfa) 2 puffs INH Q6H PRN PRN Reason: Shortness Of Breath Stop: 09/27/19 12:09 Amlodipine Besylate (Norvasc) 5 mg PO QAM [facility] Stop: 09/29/19 08:59 Last Admin: 08/30/19 08:17 Dose: 5 mg Documented by: Apixaban (Eliquis) 5 mg PO BID [facility] Stop: 09/27/19 20:59 Last Admin: 08/30/19 08:19 Dose: 5 mg Documented by: Betamethasone/Clotrimazole (Lotrisone 1/0.5%) 1 appln EXT BID [facility] Stop: 09/27/19 20:59 Last Admin: 08/30/19 08:19 Dose: Not Given Documented by: Budesonide/Formoterol Fumarate (Symbicort 160mcg/4.5mcg) 2 puffs INH BID PRN PRN Reason: Shortness Of Breath Stop: 09/27/19 12:09 Dextrose (Dextrose 50%) 25 - 50 ml IV UD PRN; Protocol PRN Reason: Hypoglycemia Protocol Stop: 09/27/19 11:41 Doxycycline Hyclate (Vibramycin) 100 mg PO BID [facility] Stop: 09/02/19 12:59 Last Admin: 08/30/19 08:19 Dose: 100 mg Documented by: Fenofibrate (Tricor) 145 mg PO DAILY [facility] Stop: 09/28/19 08:59 Last Admin: 08/30/19 08:18 Dose: 145 mg Documented by: Furosemide (Lasix) 40 mg PO BID17 [facility] Stop: 09/28/19 09:29 Last Admin: 08/30/19 08:18 Dose: 40 mg Documented by: Glucagon (Glucagen) 1 mg SQ UD PRN; Protocol PRN Reason: Hypoglycemia Protocol Stop: 09/27/19 11:41 Glucose (Dex4 Glucose) 4 - 8 tabs PO UD PRN; Protocol PRN Reason: Hypoglycemia Protocol Stop: 09/27/19 11:41 Glucose (Glucose 40%) 15 - 30 gm PO UD PRN; Protocol PRN Reason: Hypoglycemia Protocol Stop: 09/27/19 11:41 Promethazine HCl 12.5 mg/ (Sodium Chloride) 50.5 mls @ 202 mls/hr IV Q6H PRN PRN Reason: Nausea And Vomiting Stop: 09/27/19 14:45 Last Infusion: 08/28/19 17:15 Dose: Infused Documented by: Insulin Aspart (Novolog Flexpen) 0 units SC ACHS [facility] Stop: 09/27/19 16:29 Last Admin: 08/30/19 08:24 Dose: 3 units Documented by: Losartan Potassium (Cozaar) 100 mg PO DAILY [facility] Stop: 09/28/19 08:59 Last Admin: 08/30/19 08:17 Dose: 100 mg Documented by: Metoprolol Succinate (Toprol Xl) 100 mg PO QAM [facility] Stop: 09/28/19 08:59 Last Admin: 08/30/19 08:16 Dose: 100 mg Documented by: Miscellaneous (Carbohydrates For Hypoglycemia) 15 - 30 gm PO UD PRN PRN Reason: Hypoglycemia Protocol Stop: 09/27/19 11:41 Montelukast Sodium (Singulair) 10 mg PO HS [facility] Stop: 09/27/19 20:59 Last Admin: 08/29/19 20:46 Dose: 10 mg Documented by: Multivitamins (Multivitamin Tab) 1 tab PO DAILY [facility] Stop: 09/28/19 08:59 Last Admin: 08/30/19 08:16 Dose: 1 tab Documented by: Ondansetron HCl (Zofran) 4 mg IV Q6H PRN PRN Reason: Nausea Stop: 09/27/19 20:59 Last Admin: 08/30/19 11:35 Dose: 4 mg Documented by: Oseltamivir Phosphate (Tamiflu) 30 mg PO BID [facility]; Protocol Stop: 09/02/19 14:59 Last Admin: 08/30/19 08:20 Dose: 30 mg Documented by: Pantoprazole Sodium (Protonix) 40 mg PO DAILY [facility] Stop: 09/28/19 08:59 Last Admin: 08/30/19 08:17 Dose: 40 mg Documented by: Pravastatin Sodium (Pravachol) 40 mg PO DAILY [facility] Stop: 09/28/19 08:59 Last Admin: 08/30/19 08:16 Dose: 40 mg Documented by: Pregabalin (Lyrica) 100 mg PO TID [facility] Stop: 09/27/19 13:59 Last Admin: 08/30/19 08:25 Dose: 100 mg Documented by: Sotalol HCl (Betapace) 120 mg PO BID [facility] Stop: 09/27/19 20:59 Last Admin: 08/30/19 08:16 Dose: 120 mg Documented by:
--- NOTE | 2019-08-30 12:28 | Hospitalist Progress Note ---
Date of Service August 30, 2019 Assessment & Plan (1) Acute pulmonary edema: Has history of CHF likely diastolic given the history of atrial fibrillation Presented with acute pulmonary edema Has been started on intravenous nitroglycerin with improvement Received intravenous Lasix in the ER and will continue 40 mg twice daily Initial troponin has been negative and EKG is in sinus rhythm with controlled rate The patient will be admitted to ICU [facility] and cardiology consulted Clinically a lot better today Echo has been difficult to perform and interpret Back to her baseline Ready to be discharged after physical therapy this afternoon (2) Atrial fibrillation: She has paroxysmal atrial fibrillation History of atrial fibrillation status post cardioversion in the past Now is in sinus rhythm Has been on Eliquis We will continue sotalol 120 mg twice daily and hold metoprolol for now Metoprolol has been continued Going in and out of atrial fibrillation We will continue outpatient dose of beta-marc and sotalol (3) Hypertension: History of hypertension on beta-marc, ARB and calcium beta-marc Blood pressure noted to be very high at presentation with systolic more than 200 Has been started on nitroglycerin drip and the blood pressure is coming down We will continue current medications but hold metoprolol for now given acute pulmonary edema Blood pressure is controlled as of today Blood pressure is on the lower side of normal (4) Diabetes type 2, controlled: We will hold metformin Blood sugar AC at bedtime and SSI (5) Respiratory failure: Presented with pulmonary edema with respiratory failure Noted to have acidosis at presentation Expected to improve Clinically a lot better (6) CHF (congestive heart failure): History of congestive heart failure likely diastolic We will get an echocardiogram; technically limited study with difficult reading but grossly unremarkable IV Lasix has been changed to oral Clinically much improved She has been getting Lasix 40 mg once a day 2 step oxygen saturation before discharge (7) Hyperlipidemia: Continue current medications DVT prophylaxis Continue Eliquis CODE STATUS Full Discussed with the family members in detail (8) Influenza A: Diagnosed following admission Has been on Tamiflu Clinically much better Subjective 08/29 The patient was seen and examined in ICU She was admitted with acute pulmonary edema yesterday and noted to have flu positive Clinically a lot better today with profuse diuresis Denies any chest pain and/or palpitation Remains hemodynamically stable 08/30 Patient was seen and examined in telemetry unit She is out of bed on a chair and denies any symptoms Later on complained to have some burning sensation during micturition Denies any fever and/or chills Denies any chest pain and/or palpitation Review of Systems Review of Systems: All systems reviewed and are unremarkable except as noted below Respiratory: no cough and no dyspnea Physical Exam Physical Exam: No apparent distress at rest Constitutional: well developed, well nourished, + acute distress, + ill appearing and + obese Eyes: PERRL, conjunctivae normal, anicteric sclerae ENMT: external ear and nose normal, oropharynx normal Neck: trachea midline, no thyromegaly Respiratory: no respiratory distress and no labored breathing Auscultation: lungs clear to auscultation bilaterally and + diminished lung sounds; no crackles (No more crackles) Cardiovascular: Rate/Rhythm: regular rate and regular rhythm Heart Sounds: no murmur Extremities: + pedal edema (Trace edema bilaterally, slightly more on the right) Gastrointestinal (Abdomen): Inspection/Auscultation: abdomen normal to inspection and normal bowel sounds Musculoskeletal: no cyanosis or clubbing, extremities motor strength 5/5 Lymphatic: no cervical or axillary lymphadenopathy Results & Data Vital Signs (Past 12 Hours) Vital Signs Temp Pulse Resp BP BP Pulse Ox 08/30/19 11:09 36.6 C 70 18 91/53 L 89 L 08/30/19 07:22 36.9 C 82 19 94/54 L 85 L 08/30/19 03:27 36.7 C 84 19 128/65 91 Laboratory Results Short CBC 08/30/19 Range/Units 09:28 WBC 6.21 (4.8-10.8) K/uL Hgb 12.4 (12.0-16.0) g/dL Hct 39.1 (37-47) % Plt Count 306 (130-400) K/uL BMP 08/30/19 09:28 Sodium 137 Potassium 4.0 D Chloride 102 Carbon Dioxide 29 BUN 35 H D Creatinine 1.54 H D Glucose 219 H Calcium 8.9 Medications Administered Current Inpatient Medications Albuterol (Ventolin Hfa) 2 puffs INH Q6H PRN PRN Reason: Shortness Of Breath Stop: 09/27/19 12:09 Amlodipine Besylate (Norvasc) 5 mg PO [facility] Stop: 09/29/19 08:59 Last Admin: 08/30/19 08:17 Dose: 5 mg Documented by: Apixaban (Eliquis) 5 mg PO BID [facility] Stop: 09/27/19 20:59 Last Admin: 08/30/19 08:19 Dose: 5 mg Documented by: Betamethasone/Clotrimazole (Lotrisone 1/0.5%) 1 appln EXT BID [facility] Stop: 09/27/19 20:59 Last Admin: 08/30/19 08:19 Dose: Not Given Documented by: Budesonide/Formoterol Fumarate (Symbicort 160mcg/4.5mcg) 2 puffs INH BID PRN PRN Reason: Shortness Of Breath Stop: 09/27/19 12:09 Dextrose (Dextrose 50%) 25 - 50 ml IV UD PRN; Protocol PRN Reason: Hypoglycemia Protocol Stop: 09/27/19 11:41 Doxycycline Hyclate (Vibramycin) 100 mg PO BID [facility] Stop: 09/02/19 12:59 Last Admin: 08/30/19 08:19 Dose: 100 mg Documented by: Fenofibrate (Tricor) 145 mg PO DAILY [facility] Stop: 09/28/19 08:59 Last Admin: 08/30/19 08:18 Dose: 145 mg Documented by: Furosemide (Lasix) 40 mg PO DAILY [facility] Stop: 09/30/19 08:59 Glucagon (Glucagen) 1 mg SQ UD PRN; Protocol PRN Reason: Hypoglycemia Protocol Stop: 09/27/19 11:41 Glucose (Dex4 Glucose) 4 - 8 tabs PO UD PRN; Protocol PRN Reason: Hypoglycemia Protocol Stop: 09/27/19 11:41 Glucose (Glucose 40%) 15 - 30 gm PO UD PRN; Protocol PRN Reason: Hypoglycemia Protocol Stop: 09/27/19 11:41 Promethazine HCl 12.5 mg/ (Sodium Chloride) 50.5 mls @ 202 mls/hr IV Q6H PRN PRN Reason: Nausea And Vomiting Stop: 09/27/19 14:45 Last Infusion: 08/28/19 17:15 Dose: Infused Documented by: Insulin Aspart (Novolog Flexpen) 0 units SC ACHS [facility] Stop: 09/27/19 16:29 Last Admin: 08/30/19 08:24 Dose: 3 units Documented by: Losartan Potassium (Cozaar) 100 mg PO DAILY [facility] Stop: 09/28/19 08:59 Last Admin: 08/30/19 08:17 Dose: 100 mg Documented by: Metoprolol Succinate (Toprol Xl) 100 mg PO QAM [facility] Stop: 09/28/19 08:59 Last Admin: 08/30/19 08:16 Dose: 100 mg Documented by: Miscellaneous (Carbohydrates For Hypoglycemia) 15 - 30 gm PO UD PRN PRN Reason: Hypoglycemia Protocol Stop: 09/27/19 11:41 Montelukast Sodium (Singulair) 10 mg PO HS [facility] Stop: 09/27/19 20:59 Last Admin: 08/29/19 20:46 Dose: 10 mg Documented by: Multivitamins (Multivitamin Tab) 1 tab PO DAILY [facility] Stop: 09/28/19 08:59 Last Admin: 08/30/19 08:16 Dose: 1 tab Documented by: Ondansetron HCl (Zofran) 4 mg IV Q6H PRN PRN Reason: Nausea Stop: 09/27/19 20:59 Last Admin: 08/30/19 11:35 Dose: 4 mg Documented by: Oseltamivir Phosphate (Tamiflu) 30 mg PO BID [facility]; Protocol Stop: 09/02/19 14:59 Last Admin: 08/30/19 08:20 Dose: 30 mg Documented by: Pantoprazole Sodium (Protonix) 40 mg PO DAILY [facility] Stop: 09/28/19 08:59 Last Admin: 08/30/19 08:17 Dose: 40 mg Documented by: Pravastatin Sodium (Pravachol) 40 mg PO DAILY [facility] Stop: 09/28/19 08:59 Last Admin: 08/30/19 08:16 Dose: 40 mg Documented by: Pregabalin (Lyrica) 100 mg PO TID [facility] Stop: 09/27/19 13:59 Last Admin: 08/30/19 08:25 Dose: 100 mg Documented by: Sotalol HCl (Betapace) 120 mg PO BID [facility] Stop: 09/27/19 20:59 Last Admin: 08/30/19 08:16 Dose: 120 mg Documented by: (1) Respiratory failure Chronicity: unspecified Respiratory failure complication: hypoxia Qualified Code(s): J96.91 - Respiratory failure, unspecified with hypoxia
[2019-08-30] MEDS ORDERED: HYDROCODONE/ACETAMOPHEN 5/325MG TAB PO PRN (13:01)
--- NOTE | 2019-08-30 13:32 | Billing Data ---
Date of Service August 29, 2019 Coding Level of Care Code 89654 Subseq Hosp Care Lvl 2
[2019-08-30] MEDS: PROMETHAZINE HCL 12.5 MG in SODIUM CHLORIDE 0.9% 50 ML IV PRN (13:38)
[2019-08-30 14:20] LABS: Appearance Urine Turbid (Clear); Bilirubin Urine Negative (Negative); Blood Urine Negative (Negative); Color Urine Yellow; Glucose Urine UA Negative (Negative); Ketones Urine Negative (Negative); Leukocyte Esterase Urine 2+ (Negative); Nitrite Urine Positive (Negative); Protein Urine Negative (Negative); Specific Gravity Urine <= 1.005 (1.000-1.030); Urobilinogen Urine Negative (Negative); pH Urine >= 9.0 (4.5-7.5)
[2019-08-30 14:30] LABS: Bacteria Urine 4+ (Negative); RBC Urine 0-4 /hpf (0-4)
[2019-08-30] MEDS: cephALEXin 500 MG CAP PO SCH ×2 (18:06→22:42)
[2019-08-30] MEDS: MONTELUKAST SODIUM 10 MG TABLET PO SCH (20:32)
[2019-08-30] MEDS ORDERED: ALBUMIN 25% 50 ML IV ONE (22:23)
--- NOTE | 2019-08-30 22:24 | Communication Note ---
Date of Service: August 30, 2019 Made aware by RN of poor urine output. SBP 90s. A.m. serum creatinine noted to be 1.5 AP ARF IV albumin 1 dose appropriate given pulmonary congestion Hold Lasix, losartan for now until creatinine back to baseline Will relay to AM provider.
[2019-08-31] MEDS: SOTALOL HCL 80 MG TAB PO SCH ×2 (07:41→20:46)
[2019-08-31] MEDS: DOXYCYCLINE HYCLATE 100 MG CAP PO SCH ×2 (07:43→20:44)
[2019-08-31] MEDS: cephALEXin 500 MG CAP PO SCH ×2 (07:43→20:46)
[2019-08-31] MEDS: LOSARTAN POTASSIUM 50 MG TAB PO SCH (07:44)
[2019-08-31] MEDS: PANTOprazole 40 MG TAB PO SCH (07:44)
[2019-08-31] MEDS: MULTIVITAMIN TAB PO SCH (07:45)
[2019-08-31] MEDS: FENOFIBRATE NANOCRYSTALLIZED 145 MG TABLET PO SCH (07:45)
[2019-08-31] MEDS: APIXABAN 5 MG TABLET PO SCH ×2 (07:45→20:44)
[2019-08-31] MEDS: CLOTRIMAZOLE/BETAMETHASONE CR 15 GM TUBE EXT SCH ×3 (07:46→20:54)
[2019-08-31] MEDS: PRAVASTATIN SOD 40 MG TAB PO SCH (07:46)
[2019-08-31] MEDS: AMLODIPINE BESYLATE 5 MG TAB PO SCH (07:46)
[2019-08-31] MEDS: PREGABALIN 100 MG CAP PO SCH ×3 (07:51→20:51)
[2019-08-31] MEDS: OSELTAMIVIR PHOSPHATE SUSP 30 MG/5 ML UDP PO SCH (07:51)
[2019-08-31] MEDS: INSULIN ASPART 100 UNITS/ML 3 ML PEN SC SCH ×4 (07:54→20:45)
[2019-08-31] MEDS ORDERED: FUROSEMIDE 40 MG TAB PO SCH (09:00)
--- NOTE | 2019-08-31 09:34 | Cardiology Progress Note ---
Date of Service August 31, 2019 Assessment & Plan (1) PAF (paroxysmal atrial fibrillation): (2) CHF (congestive heart failure): (3) Diabetes type 2, controlled: The patient is doing well clinically. The patient had a bump in her creatinine and her diuretics were held. I will hold her Lasix 1 more day and then tomorrow she will start Lasix 40 mg daily. Otherwise, she is stable from a cardiac standpoint. Subjective The patient had an uneventful night. She has returned to sinus rhythm. Her back pain and dysuria have improved. Urine cultures grew Proteus and she is now on antibiotics. Review of Systems Review of Systems: All systems reviewed & are unremarkable except as noted in HPI & below Nothing additional to add. Physical Exam Physical Exam: General: no acute distress and stated age Head: normocephalic, no masses, lesions, tenderness or abnormalities Eyes: conjunctiva are pink and non-injected, sclera clear Neck: supple, no adenopathy, no bruits, normal jugular venous pulse, no hepatojugular reflux Chest: normal shape and normal respiratory effort Lungs: clear to auscultation and percussion Cardiac Exam: - regular rate & rhythm, no murmurs gallops or rubs - normal S1, normal S2 Pulses: 2(+) throughout Abdomen: abdomen soft, non-tender, no abnormal masses and no hepatosplenomegaly Musculoskeletal: no gait disturbance, no joint inflammation, no deforming arthritis Extremities: no edema and no cyanosis Neuro: grossly normal exam Results & Data Vital Signs (Past 12 Hours) Vital Signs Temp Pulse Pulse Resp BP BP Pulse Ox 08/31/19 07:06 36.5 C 53 L 18 107/58 L 98 08/31/19 03:22 36.6 C 53 L 18 93/52 L 90 08/31/19 01:07 47 L 14 94 08/30/19 23:33 36.8 C 49 L 51 L 18 93/56 L 92 08/30/19 22:05 52 L 14 92 Laboratory Results Laboratory Results - last 24 hr 08/28/19 08/28/19 08/30/19 13:15 15:40 09:28 WBC 6.21 RBC 4.17 L Hgb 12.4 Hct 39.1 MCV 93.8 MCH 29.7 MCHC 31.7 L RDW Std Deviation 51.5 H RDW Coeff of Kirk 15.2 H Plt Count 306 MPV 10.4 Immature Gran % (Auto) 0.3 Neut % (Auto) 38.7 Lymph % (Auto) 47.5 [place] % (Auto) 10.0 Eos % (Auto) 2.7 Baso % (Auto) 0.8 Immature Gran # (Auto) 0.02 Neut # (Auto) 2.40 Lymph # (Auto) 2.95 [place] # (Auto) 0.62 H Eos # (Auto) 0.17 Baso # (Auto) 0.05 Sodium Potassium Chloride Carbon Dioxide Anion Gap BUN Creatinine Est Cr Clr Drug Dosing Est GFR ( Amer) Est GFR (Non-Af Amer) BUN/Creatinine Ratio Glucose POC Glucose Calcium Magnesium Urine Color Urine Appearance Urine pH Ur Specific [place] Urine Protein Urine Glucose (UA) Urine Ketones Urine Blood Urine Nitrite Urine Bilirubin Urine Urobilinogen Ur Leukocyte Esterase Urine RBC Urine WBC Ur Epithelial Cells Urine Bacteria Urine Legionella Ag SEE NOTE Mycoplasma pneumon IgM 74 08/30/19 08/30/19 08/30/19 09:28 11:34 13:30 WBC RBC Hgb Hct MCV MCH MCHC RDW Std Deviation RDW Coeff of Kirk Plt Count MPV Immature Gran % (Auto) Neut % (Auto) Lymph % (Auto) [place] % (Auto) Eos % (Auto) Baso % (Auto) Immature Gran # (Auto) Neut # (Auto) Lymph # (Auto) [place] # (Auto) Eos # (Auto) Baso # (Auto) Sodium 137 Potassium 4.0 D Chloride 102 Carbon Dioxide 29 Anion Gap 6.0 BUN 35 H D Creatinine 1.54 H D Est Cr Clr Drug Dosing 30.4 Est GFR ( Amer) 37.3 Est GFR (Non-Af Amer) 32.2 BUN/Creatinine Ratio 22.9 H Glucose 219 H POC Glucose 177 H Calcium 8.9 Magnesium 1.8 Urine Color Yellow Urine Appearance Turbid A Urine pH >= 9.0 H Ur Specific [place] <= 1.005 Urine Protein Negative Urine Glucose (UA) Negative Urine Ketones Negative Urine Blood Negative Urine Nitrite Positive A Urine Bilirubin Negative Urine Urobilinogen Negative Ur Leukocyte Esterase 2+ H Urine RBC 0-4 Urine WBC 5-10 H Ur Epithelial Cells 10-20 H Urine Bacteria 4+ H Urine Legionella Ag Mycoplasma pneumon IgM 08/30/19 08/30/19 08/31/19 16:18 20:35 07:08 WBC RBC Hgb Hct MCV MCH MCHC RDW Std Deviation RDW Coeff of Kirk Plt Count MPV Immature Gran % (Auto) Neut % (Auto) Lymph % (Auto) [place] % (Auto) Eos % (Auto) Baso % (Auto) Immature Gran # (Auto) Neut # (Auto) Lymph # (Auto) [place] # (Auto) Eos # (Auto) Baso # (Auto) Sodium Potassium Chloride Carbon Dioxide Anion Gap BUN Creatinine Est Cr Clr Drug Dosing Est GFR ( Amer) Est GFR (Non-Af Amer) BUN/Creatinine Ratio Glucose POC Glucose 131 H 150 H 101 H Calcium Magnesium Urine Color Urine Appearance Urine pH Ur Specific [place] Urine Protein Urine Glucose (UA) Urine Ketones Urine Blood Urine Nitrite Urine Bilirubin Urine Urobilinogen Ur Leukocyte Esterase Urine RBC Urine WBC Ur Epithelial Cells Urine Bacteria Urine Legionella Ag Mycoplasma pneumon IgM Medications Administered Current Inpatient Medications Hydrocodone Bitart/Acetaminophen ([place] 5/325) 1 tab PO Q6H PRN PRN Reason: Pain Stop: 09/13/19 13:00 Last Admin: 08/30/19 14:14 Dose: 1 tab Documented by: Albuterol (Ventolin Hfa) 2 puffs INH Q6H PRN PRN Reason: Shortness Of Breath Stop: 09/27/19 12:09 Amlodipine Besylate (Norvasc) 5 mg PO QAM [facility] Stop: 09/29/19 08:59 Last Admin: 08/31/19 07:46 Dose: 5 mg Documented by: Apixaban (Eliquis) 5 mg PO BID [facility] Stop: 09/27/19 20:59 Last Admin: 08/31/19 07:45 Dose: 5 mg Documented by: Betamethasone/Clotrimazole (Lotrisone 1/0.5%) 1 appln EXT BID [facility] Stop: 09/27/19 20:59 Last Admin: 08/31/19 07:46 Dose: 1 appln Documented by: Budesonide/Formoterol Fumarate (Symbicort 160mcg/4.5mcg) 2 puffs INH BID PRN PRN Reason: Shortness Of Breath Stop: 09/27/19 12:09 Cephalexin HCl (Keflex) 500 mg PO BID [facility]; Protocol Stop: 09/04/19 13:59 Last Admin: 08/31/19 07:43 Dose: 500 mg Documented by: Dextrose (Dextrose 50%) 25 - 50 ml IV UD PRN; Protocol PRN Reason: Hypoglycemia Protocol Stop: 09/27/19 11:41 Doxycycline Hyclate (Vibramycin) 100 mg PO BID [facility] Stop: 09/02/19 12:59 Last Admin: 08/31/19 07:43 Dose: 100 mg Documented by: Fenofibrate (Tricor) 145 mg PO DAILY [facility] Stop: 09/28/19 08:59 Last Admin: 08/31/19 07:45 Dose: 145 mg Documented by: Furosemide (Lasix) 40 mg PO QAM [facility] Stop: 10/01/19 08:59 Glucagon (Glucagen) 1 mg SQ UD PRN; Protocol PRN Reason: Hypoglycemia Protocol Stop: 09/27/19 11:41 Glucose (Dex4 Glucose) 4 - 8 tabs PO UD PRN; Protocol PRN Reason: Hypoglycemia Protocol Stop: 09/27/19 11:41 Glucose (Glucose 40%) 15 - 30 gm PO UD PRN; Protocol PRN Reason: Hypoglycemia Protocol Stop: 09/27/19 11:41 Promethazine HCl 12.5 mg/ (Sodium Chloride) 50.5 mls @ 202 mls/hr IV Q6H PRN PRN Reason: Nausea And Vomiting Stop: 09/27/19 14:45 Last Infusion: 08/30/19 13:53 Dose: Infused Documented by: Insulin Aspart (Novolog Flexpen) 0 units SC ACHS [facility] Stop: 09/27/19 16:29 Last Admin: 08/31/19 07:54 Dose: 3 units Documented by: Losartan Potassium (Cozaar) 100 mg PO DAILY [facility] Stop: 09/28/19 08:59 Last Admin: 08/31/19 07:44 Dose: 100 mg Documented by: Metoprolol Succinate (Toprol Xl) 100 mg PO QAM [facility] Stop: 09/28/19 08:59 Last Admin: 08/30/19 08:16 Dose: 100 mg Documented by: Miscellaneous (Carbohydrates For Hypoglycemia) 15 - 30 gm PO UD PRN PRN Reason: Hypoglycemia Protocol Stop: 09/27/19 11:41 Montelukast Sodium (Singulair) 10 mg PO HS [facility] Stop: 09/27/19 20:59 Last Admin: 08/30/19 20:32 Dose: 10 mg Documented by: Multivitamins (Multivitamin Tab) 1 tab PO DAILY [facility] Stop: 09/28/19 08:59 Last Admin: 08/31/19 07:45 Dose: 1 tab Documented by: Ondansetron HCl (Zofran) 4 mg IV Q6H PRN PRN Reason: Nausea Stop: 09/27/19 20:59 Last Admin: 08/30/19 11:35 Dose: 4 mg Documented by: Oseltamivir Phosphate (Tamiflu) 30 mg PO BID [facility]; Protocol Stop: 09/02/19 14:59 Last Admin: 08/31/19 07:51 Dose: 30 mg Documented by: Pantoprazole Sodium (Protonix) 40 mg PO DAILY [facility] Stop: 09/28/19 08:59 Last Admin: 08/31/19 07:44 Dose: 40 mg Documented by: Pravastatin Sodium (Pravachol) 40 mg PO DAILY [facility] Stop: 09/28/19 08:59 Last Admin: 08/31/19 07:46 Dose: 40 mg Documented by: Pregabalin (Lyrica) 100 mg PO TID [facility] Stop: 09/27/19 13:59 Last Admin: 08/31/19 07:51 Dose: 100 mg Documented by: Sotalol HCl (Betapace) 120 mg PO BID [facility] Stop: 09/27/19 20:59 Last Admin: 08/31/19 07:41 Dose: Not Given Documented by:
[2019-08-31] MEDS: METOPROLOL SUCC 50MG EXT REL TAB PO SCH (11:57)
[2019-08-31 12:19] LABS: BUN Creatinine Ratio 25.1 (10-20); Calcium 8.9 mg/dl (8.5-10.1); Creatinine Clr Calc Pharmacy 25.6 ml/min; Est GFR (African American) 30.1; Potassium 3.8 mmol/L (3.5-5.1)
--- NOTE | 2019-08-31 18:12 | Hospitalist Progress Note ---
Date of Service August 31, 2019 Assessment & Plan (1) Acute pulmonary edema: Per admitting service notes: Has history of CHF likely diastolic given the history of atrial fibrillation Presented with acute pulmonary edema Has been started on intravenous nitroglycerin with improvement Received intravenous Lasix in the ER and will continue 40 mg twice daily Initial troponin has been negative and EKG is in sinus rhythm with controlled rate Admitted to ICU Lasix held for elevated creatinine Continue to monitor creatinine Appreciate cardiology service recommendations (2) Atrial fibrillation: Dr. Jain's notes: She has paroxysmal atrial fibrillation History of atrial fibrillation status post cardioversion in the past Now is in sinus rhythm Has been on Eliquis Continue metoprolol and sotalol, Eliquis (3) Hypertension: Presented with hypertensive urgency Blood pressure has improved Continue amlodipine Losartan for elevated creatinine (4) Diabetes type 2, controlled: hold metformin Blood sugar AC at bedtime and SSI (5) Respiratory failure: Presented with pulmonary edema with respiratory failure Noted to have acidosis at presentation Resolved (6) CHF (congestive heart failure): Management per #1 (7) Hyperlipidemia: Continue current medications (8) Influenza A: Improving Continue Tamiflu and doxycycline (9) Possible urinary tract infection: Follow-up urine cultures Continue cephalexin DVT prophylaxis Continue Eliquis CODE STATUS Full Anticipate discharge to home when medically stable, cleared by assisted sales representative, renal function improved Subjective Follow-up for CHF exacerbation Seen resting up in bedside chair, comfortable, not in distress, pleasant States she feels improved overall No shortness of breath, no cough, no sputum, no fevers or chills No chest pain, palpitations, dizziness Denies other symptoms Review of Systems Review of Systems: All systems reviewed & are unremarkable except as noted in HPI & below Physical Exam Physical Exam: General- oriented x 3, not in distress, speaks in sentences with no effort or accessory muscle use Eyes- anicteric Neck- no JVD Lungs- clear breath sounds bilaterally, no rales/wheezes Heart- normal rate, regular rhythm; no murmurs Abdomen- normal bowel sounds, nondistended, soft, nontender Extremities- no pretibial edema, no calf tenderness Neuro- alert, oriented x 3; no gross focal neurologic deficits Skin- warm & dry Results & Data Vital Signs (Past 12 Hours) Vital Signs Temp Pulse Resp BP BP Pulse Ox 08/31/19 15:26 36.3 C L 56 L 18 133/72 94 08/31/19 11:51 36.4 C L 53 L 18 112/65 93 08/31/19 07:06 36.5 C 53 L 18 107/58 L 98 (1) Respiratory failure Chronicity: unspecified Respiratory failure complication: hypoxia Qualified Code(s): J96.91 - Respiratory failure, unspecified with hypoxia
[2019-08-31] MEDS: MONTELUKAST SODIUM 10 MG TABLET PO SCH (20:44)
[2019-09-01 07:18] LABS: BUN Creatinine Ratio 29.2 (10-20); Creatinine Clr Calc Pharmacy 34.8 ml/min; Est GFR (African American) 43.8; Est GFR (Non-African American) 37.8; Potassium 4.6 mmol/L (3.5-5.1)
[2019-09-01] MEDS: INSULIN ASPART 100 UNITS/ML 3 ML PEN SC SCH ×2 (07:38→11:50)
[2019-09-01] MEDS: PRAVASTATIN SOD 40 MG TAB PO SCH (07:41)
[2019-09-01] MEDS: MULTIVITAMIN TAB PO SCH (07:41)
[2019-09-01] MEDS: DOXYCYCLINE HYCLATE 100 MG CAP PO SCH (07:41)
[2019-09-01] MEDS: METOPROLOL SUCC 50MG EXT REL TAB PO SCH (07:41)
[2019-09-01] MEDS: AMLODIPINE BESYLATE 5 MG TAB PO SCH (07:41)
[2019-09-01] MEDS: SOTALOL HCL 80 MG TAB PO SCH (07:42)
[2019-09-01] MEDS: cephALEXin 500 MG CAP PO SCH (07:42)
[2019-09-01] MEDS: PANTOprazole 40 MG TAB PO SCH (07:42)
[2019-09-01] MEDS: FENOFIBRATE NANOCRYSTALLIZED 145 MG TABLET PO SCH (07:42)
[2019-09-01] MEDS: APIXABAN 5 MG TABLET PO SCH (07:43)
[2019-09-01] MEDS: CLOTRIMAZOLE/BETAMETHASONE CR 15 GM TUBE EXT SCH (07:43)
[2019-09-01] MEDS: PREGABALIN 100 MG CAP PO SCH ×2 (07:47→13:59)
[2019-09-01] MEDS ORDERED: OSELTAMIVIR PHOSPHATE SUSP 30 MG/5 ML UDP PO ONE ×3 (09:00→21:00)
[2019-09-01] MEDS ORDERED: FUROSEMIDE 40 MG TAB PO SCH (09:00)
--- NOTE | 2019-09-01 11:13 | Cardiology Progress Note ---
Date of Service September 01, 2019 Assessment & Plan (1) PAF (paroxysmal atrial fibrillation): (2) CHF (congestive heart failure): (3) Diabetes type 2, controlled: Believe the patient is doing well enough to be discharged home after oxygen arrangements can be made. She will follow-up with her senior product marketing manager in [place] after her arrival there. Until she leaves however, we would be happy to see her in follow-up in our clinic if necessary. Subjective The patient had an uneventful night. She has no new cardiac complaints. Her two-step walk study indicates that she will need to have oxygen at home and those arrangements are being made. Review of Systems Review of Systems: All systems reviewed & are unremarkable except as noted in HPI & below Nothing additional to add. Physical Exam Physical Exam: General: no acute distress and stated age Head: normocephalic, no masses, lesions, tenderness or abnormalities Eyes: conjunctiva are pink and non-injected, sclera clear Neck: supple, no adenopathy, no bruits, normal jugular venous pulse, no hepa tojugular reflux Chest: normal shape and normal respiratory effort Lungs: clear to auscultation and percussion Cardiac Exam: - regular rate & rhythm, no murmurs gallops or rubs - normal S1, normal S2 Pulses: 2(+) throughout Abdomen: abdomen soft, non-tender, no abnormal masses and no hepatosplenomegaly Musculoskeletal: no gait disturbance, no joint inflammation, no deforming arthritis Extremities: no edema and no cyanosis Neuro: grossly normal exam Results & Data Vital Signs (Past 12 Hours) Vital Signs Temp Pulse Pulse Pulse Pulse Pulse Pulse 09/01/19 10:18 09/01/19 09:43 67 74 69 70 09/01/19 08:00 65 09/01/19 07:22 36.5 C 60 09/01/19 03:34 36.7 C 65 09/01/19 00:00 62 08/31/19 23:46 36.8 C 59 L Resp Resp Resp Resp Resp BP BP 09/01/19 10:18 09/01/19 09:43 18 18 18 18 09/01/19 08:00 09/01/19 07:22 18 135/63 09/01/19 03:34 19 147/67 H 09/01/19 00:00 08/31/19 23:46 17 113/58 L Pulse Ox Pulse Ox Pulse Ox Pulse Ox Pulse Ox Pulse Ox 09/01/19 10:18 94 09/01/19 09:43 96 86 L 93 94 09/01/19 08:00 09/01/19 07:22 98 09/01/19 03:34 95 09/01/19 00:00 08/31/19 23:46 90 Laboratory Results Laboratory Results - last 24 hr 08/31/19 08/31/19 08/31/19 11:20 11:43 16:11 Sodium 135 L Potassium 3.8 Chloride 99 Carbon Dioxide 30 Anion Gap 6.0 BUN 46 H Creatinine 1.84 H D Est Cr Clr Drug Dosing 25.6 Est GFR ( Amer) 30.1 Est GFR (Non-Af Amer) 26.0 BUN/Creatinine Ratio 25.1 H Glucose 146 H POC Glucose 148 H 97 Calcium 8.9 08/31/19 09/01/19 09/01/19 20:21 06:26 07:35 Sodium 141 Potassium 4.6 D Chloride 107 Carbon Dioxide 29 Anion Gap 5.0 BUN 39 H Creatinine 1.35 H D Est Cr Clr Drug Dosing 34.8 Est GFR ( Amer) 43.8 Est GFR (Non-Af Amer) 37.8 BUN/Creatinine Ratio 29.2 H Glucose 111 H POC Glucose 134 H 113 H Calcium 9.0 Medications Administered Current Inpatient Medications Hydrocodone Bitart/Acetaminophen ([place] 5/325) 1 tab PO Q6H PRN PRN Reason: Pain Stop: 09/13/19 13:00 Last Admin: 08/30/19 14:14 Dose: 1 tab Documented by: Albuterol (Ventolin Hfa) 2 puffs INH Q6H PRN PRN Reason: Shortness Of Breath Stop: 09/27/19 12:09 Amlodipine Besylate (Norvasc) 5 mg PO QAM [facility] Stop: 09/29/19 08:59 Last Admin: 09/01/19 07:41 Dose: 5 mg Documented by: Apixaban (Eliquis) 5 mg PO BID [facility] Stop: 09/27/19 20:59 Last Admin: 09/01/19 07:43 Dose: 5 mg Documented by: Betamethasone/Clotrimazole (Lotrisone 1/0.5%) 1 appln EXT BID [facility] Stop: 09/27/19 20:59 Last Admin: 09/01/19 07:43 Dose: 1 appln Documented by: Budesonide/Formoterol Fumarate (Symbicort 160mcg/4.5mcg) 2 puffs INH BID PRN PRN Reason: Shortness Of Breath Stop: 09/27/19 12:09 Cephalexin HCl (Keflex) 500 mg PO BID [facility]; Protocol Stop: 09/04/19 13:59 Last Admin: 09/01/19 07:42 Dose: 500 mg Documented by: Dextrose (Dextrose 50%) 25 - 50 ml IV UD PRN; Protocol PRN Reason: Hypoglycemia Protocol Stop: 09/27/19 11:41 Doxycycline Hyclate (Vibramycin) 100 mg PO BID [facility] Stop: 09/02/19 12:59 Last Admin: 09/01/19 07:41 Dose: 100 mg Documented by: Fenofibrate (Tricor) 145 mg PO DAILY [facility] Stop: 09/28/19 08:59 Last Admin: 09/01/19 07:42 Dose: 145 mg Documented by: Furosemide (Lasix) 40 mg PO QAM [facility] Stop: 10/01/19 08:59 Last Admin: 09/01/19 07:42 Dose: 40 mg Documented by: Glucagon (Glucagen) 1 mg SQ UD PRN; Protocol PRN Reason: Hypoglycemia Protocol Stop: 09/27/19 11:41 Glucose (Dex4 Glucose) 4 - 8 tabs PO UD PRN; Protocol PRN Reason: Hypoglycemia Protocol Stop: 09/27/19 11:41 Glucose (Glucose 40%) 15 - 30 gm PO UD PRN; Protocol PRN Reason: Hypoglycemia Protocol Stop: 09/27/19 11:41 Promethazine HCl 12.5 mg/ (Sodium Chloride) 50.5 mls @ 202 mls/hr IV Q6H PRN PRN Reason: Nausea And Vomiting Stop: 09/27/19 14:45 Last Infusion: 08/30/19 13:53 Dose: Infused Documented by: Insulin Aspart (Novolog Flexpen) 0 units SC ACHS [facility] Stop: 09/27/19 16:29 Last Admin: 09/01/19 07:38 Dose: 3 units Documented by: Losartan Potassium (Cozaar) 100 mg PO DAILY [facility] Stop: 09/28/19 08:59 Last Admin: 08/31/19 07:44 Dose: 100 mg Documented by: Metoprolol Succinate (Toprol Xl) 100 mg PO QAM [facility] Stop: 09/28/19 08:59 Last Admin: 09/01/19 07:41 Dose: 100 mg Documented by: Miscellaneous (Carbohydrates For Hypoglycemia) 15 - 30 gm PO UD PRN PRN Reason: Hypoglycemia Protocol Stop: 09/27/19 11:41 Montelukast Sodium (Singulair) 10 mg PO HS [facility] Stop: 09/27/19 20:59 Last Admin: 08/31/19 20:44 Dose: 10 mg Documented by: Multivitamins (Multivitamin Tab) 1 tab PO DAILY [facility] Stop: 09/28/19 08:59 Last Admin: 09/01/19 07:41 Dose: 1 tab Documented by: Ondansetron HCl (Zofran) 4 mg IV Q6H PRN PRN Reason: Nausea Stop: 09/27/19 20:59 Last Admin: 08/30/19 11:35 Dose: 4 mg Documented by: Oseltamivir Phosphate (Tamiflu) 30 mg PO HS [facility]; Protocol Stop: 09/01/19 21:01 Pantoprazole Sodium (Protonix) 40 mg PO DAILY [facility] Stop: 09/28/19 08:59 Last Admin: 09/01/19 07:42 Dose: 40 mg Documented by: Pravastatin Sodium (Pravachol) 40 mg PO DAILY [facility] Stop: 09/28/19 08:59 Last Admin: 09/01/19 07:41 Dose: 40 mg Documented by: Pregabalin (Lyrica) 100 mg PO TID [facility] Stop: 09/27/19 13:59 Last Admin: 09/01/19 07:47 Dose: 100 mg Documented by: Sotalol HCl (Betapace) 120 mg PO BID [facility] Stop: 09/27/19 20:59 Last Admin: 09/01/19 07:42 Dose: 120 mg Documented by:
--- NOTE | 2019-09-01 14:13 | Hospitalist Progress Note ---
Date of Service September 01, 2019 Assessment & Plan (1) Acute pulmonary edema: Per admitting service notes: Has history of CHF likely diastolic given the history of atrial fibrillation Presented with acute pulmonary edema Admitted to the intensive care unit Given intravenous nitroglycerin with improvement Received intravenous Lasix As well Initial troponin has been negative and EKG is in sinus rhythm with controlled rate Clinically improved, transfer to telemetry unit Evaluated by librarian school Lasix held for elevated creatinine From 1.0-1.8 Creatinine improved to 1.3 on discharge day Rail Transportation Tabeler recommends to resume Lasix 40 mg p.o. daily Repeat basic metabolic profile on follow-up with primary care physician next week Discussed with patient regarding importance of adherence with low-sodium diet, CHF instructions also provided (2) Atrial fibrillation: Dr. Jain's notes: History of paroxysmal atrial fibrillation status post cardioversion in the past Now is in sinus rhythm Continue metoprolol and sotalol, Eliquis (3) Hypertension: Presented with hypertensive urgency Blood pressure has improved Continue amlodipine Losartan for elevated creatinine Resume accordingly and follow-up with primary care physician based on renal function (4) Diabetes type 2, controlled: Resume metformin Repeat basic metabolic profile on follow-up with primary care physician next week (5) Respiratory failure: Presented with pulmonary edema with respiratory failure Noted to have acidosis at presentation Resolved With nitroglycerin drip and Lasix IV Based on two-step exercise test, patient requires 2 L of oxygen via nasal cannula with ambulation Follow-up with primary care physician next week, wean off oxygen supplement accordingly (6) CHF (congestive heart failure): Management per #1 (7) Hyperlipidemia: Continue current medications (8) Influenza A: Positive for Influenza type A by PCR Completed 5-day course of Tamiflu, also given doxycycline x5 days Clinically improved (9) UTI (urinary tract infection): Urine culture: Positive for Proteus,pansensitive Patient requires 1 more day of cephalexin 500 mg twice a day 2.3-day course Discharge to home Patient advised to follow-up with primary care physician on Thursday Plan of care discussed with patient in detail and at length All questions answered She is understanding, agreeable, comfortable with plan of care Subjective Follow-up for CHF exacerbation Seen resting in bed side chair, comfortable, not in distress, in good spirits States she feels fine overall Denies shortness of breath except with ambulation No cough, sputum production fevers or chills Chest pain, palpitations, dizziness, nausea, abdominal pain, problems with urination No other symptoms States she is ready and would like to be discharged today Review of Systems Review of Systems: All systems reviewed & are unremarkable except as noted in HPI & below Physical Exam Physical Exam: General- oriented x 3, not in distress, speaks in sentences with no effort or accessory muscle use Eyes- anicteric Neck- no JVD Lungs- clear breath sounds , No crackles, no wheezing bilaterally Heart- normal rate, regular rhythm; no murmurs Abdomen- normal bowel sounds, nondistended, soft, nontender Extremities- no pretibial edema, no calf tenderness Neuro- alert, oriented x 3; no gross focal neurologic deficits Skin- warm & dry Results & Data Vital Signs (Past 12 Hours) Vital Signs Temp Pulse Pulse Pulse Pulse Pulse Pulse 09/01/19 11:18 36.5 C 60 09/01/19 10:18 09/01/19 09:43 67 74 69 70 09/01/19 08:00 65 09/01/19 07:22 36.5 C 60 09/01/19 03:34 36.7 C 65 Resp Resp Resp Resp Resp BP BP 09/01/19 11:18 18 123/93 09/01/19 10:18 09/01/19 09:43 18 18 18 18 09/01/19 08:00 09/01/19 07:22 18 135/63 09/01/19 03:34 19 147/67 H Pulse Ox Pulse Ox Pulse Ox Pulse Ox Pulse Ox Pulse Ox 09/01/19 11:18 100 09/01/19 10:18 94 09/01/19 09:43 96 86 L 93 94 09/01/19 08:00 09/01/19 07:22 98 09/01/19 03:34 95 Laboratory Results Laboratory Results - last 24 hr 08/31/19 08/31/19 09/01/19 16:11 20:21 06:26 Sodium 141 Potassium 4.6 D Chloride 107 Carbon Dioxide 29 Anion Gap 5.0 BUN 39 H Creatinine 1.35 H D Est Cr Clr Drug Dosing 34.8 Est GFR ( Amer) 43.8 Est GFR (Non-Af Amer) 37.8 BUN/Creatinine Ratio 29.2 H Glucose 111 H POC Glucose 97 134 H Calcium 9.0 09/01/19 09/01/19 07:35 11:16 Sodium Potassium Chloride Carbon Dioxide Anion Gap BUN Creatinine Est Cr Clr Drug Dosing Est GFR ( Amer) Est GFR (Non-Af Amer) BUN/Creatinine Ratio Glucose POC Glucose 113 H 143 H Calcium (1) Respiratory failure Chronicity: unspecified Respiratory failure complication: hypoxia Qualified Code(s): J96.91 - Respiratory failure, unspecified with hypoxia
--- NOTE | 2019-09-01 14:46 | Discharge Summary ---
Date of Service September 01, 2019 Admission HPI Per Admitting Provider She is a 79-year-old obese female with significant past medical history of hypertension, diabetes type 2, atrial fibrillation and CHF apparently has been visiting from [place] to [place]. She has had viral illness/bronchitis about 1 week ago and she has been on amoxicillin 3 times a day for that and she has been feeling better with her symptoms. She complains to have shortness of breath that started yesterday morning and got worse every time she tried to get up stairs. He did not complain any chest pain but did complain to have palpitation once or twice yesterday. Denies any swelling of the legs recently or any weight gain. She denies any fever and/or chills but does have cough with whitish phlegm. She does not have any abdominal distention but does have some nausea without vomiting. Denies any problem with urine and her bowel habit. Denies any neurological symptoms. She was noted to have acute ulnar edema in chest x-ray and she was started with intravenous nitroglycerin and received intravenous Lasix. She was admitted to ICU. Cardiology and ginning operator consult. Admission Exam Per Admitting Provider Physical Exam: Lying in bed with moderate shortness of breath at rest Constitutional: well developed, well nourished, + acute distress, + ill appearing and + obese Eyes: PERRL, conjunctivae normal, anicteric sclerae ENMT: external ear and nose normal, oropharynx normal Neck: trachea midline, no thyromegaly Respiratory: + respiratory distress and + labored breathing Auscultation: + breath sounds absent and + crackles (Bilaterally at the bases) Cardiovascular: Rate/Rhythm: regular rate and regular rhythm Heart Sounds: no murmur Extremities: + pedal edema (Trace edema bilaterally, slightly more on the right) Gastrointestinal (Abdomen): Inspection/Auscultation: abdomen normal to inspection and normal bowel sounds Musculoskeletal: No acute arthritis in any joints Neurologic: Alert, awake and oriented x3 Lymphatic: no cervical or axillary lymphadenopathy Principal Diagnosis Acute exacerbation of chronic congestive heart failure, diastolic type, influenza type A infection Discharge Exam General- oriented x 3, not in distress, speaks in sentences with no effort or accessory muscle use Eyes- anicteric Neck- no JVD Lungs- clear breath sounds , No crackles, no wheezing bilaterally Heart- normal rate, regular rhythm; no murmurs Abdomen- normal bowel sounds, nondistended, soft, nontender Extremities- no pretibial edema, no calf tenderness Neuro- alert, oriented x 3; no gross focal neurologic deficits Skin- warm & dry Discharge Data Allergies Allergy/AdvReac Type Severity Reaction Status Date / Time No Known Drug Allergies Allergy Unknown NKDA Verified 08/28/19 10:52 Consultations 08/28/19 10:20 ED Decision to Admit Stat 08/28/19 10:58 Consult Cardiology Routine 08/28/19 11:06 Consult Supervisor Mails Routine Ordered Studies XR chest 1V portable 08/28/19 XR chest: HISTORY: 89 years-old Female Dyspnea acute shortness of breath COMPARISON: None available TECHNIQUE: Portable AP view of the chest FINDINGS: Cardiac silhouette is moderately enlarged. Pulmonary vascular congestion with interstitial opacities. Mild right hemidiaphragmatic elevation. Trace pleural effusions with mild bibasilar densities suggestive of atelectasis. Degenerative changes of the spine. Bilateral shoulder arthroplasties. IMPRESSION: 1. Cardiomegaly with pulmonary edema. 2. Trace pleural effusions with bibasilar opacities suggestive of probable atelectasis. XR chest 1V portable CLINICAL HISTORY: f/u dyspnea COMPARISON STUDY: 08/28/2019 FINDINGS: Improving findings of pulmonary edema. Residual infiltrative changes left base. Mild chronic elevation right hemidiaphragm. Bilateral shoulder arthroplasties. IMPRESSION: Improving pulmonary edema. ACT 112: Negative or not required by law. Hospital Course (1) Acute pulmonary edema: Per admitting service notes: Has history of CHF likely diastolic given the history of atrial fibrillation Presented with acute pulmonary edema Admitted to the intensive care unit Given intravenous nitroglycerin with improvement Received intravenous Lasix As well Initial troponin has been negative and EKG is in sinus rhythm with controlled rate Clinically improved, transfer to telemetry unit Evaluated by Warehouse Traffic Supervisor Echo: Atrial fibrillation with mildly elevated ventricular rates, study technically limited, left ventricular systolic function is grossly normal on very limited visualization. Right ventricle is Lasix held for elevated creatinine From 1.0 to 1.8 Creatinine improved to 1.3 on discharge day Warehouse Traffic Supervisor recommends to resume Lasix 40 mg p.o. daily Repeat basic metabolic profile on follow-up with primary care physician next week Discussed with patient regarding importance of adherence with low-sodium diet, CHF instructions also provided (2) Atrial fibrillation: Dr. Jain's notes: History of paroxysmal atrial fibrillation status post cardioversion in the past Now is in sinus rhythm Continue metoprolol and sotalol, Eliquis (3) Hypertension: Presented with hypertensive urgency Blood pressure has improved Continue amlodipine Losartan HELD for elevated creatinine Resume accordingly and follow-up with primary care physician based on renal func tion (4) Diabetes type 2, controlled: Resume metformin Repeat basic metabolic profile on follow-up with primary care physician next week (5) Respiratory failure: Presented with pulmonary edema with respiratory failure Noted to have acidosis at presentation Resolved With nitroglycerin drip and Lasix IV Based on two-step exercise test, patient requires 2 L of oxygen via nasal cannula with ambulation Follow-up with primary care physician next week, wean off oxygen supplement accordingly (6) CHF (congestive heart failure): Management per #1 (7) Hyperlipidemia: Continue current medications (8) Influenza A: Positive for Influenza type A by PCR Completed 5-day course of Tamiflu, also given doxycycline x5 days Clinically improved (9) UTI (urinary tract infection): Urine culture: Positive for Proteus,pansensitive Patient requires 1 more day of cephalexin 500 mg twice a day 2.3-day course Discharge to home Patient advised to follow-up with primary care physician on Thursday Plan of care discussed with patient in detail and at length All questions answered She is understanding, agreeable, comfortable with plan of care Total Time Total Time Spent Total Time Spent (In Minutes): 50 minutes Discharge Plan Discharge Items Patient Disposition: Home - Self-Care Reason For Visit: ACUTE PUL EDEMA Discharge Diagnosis: ACUTE EXACERBATION OF CONGESTIVE HEART FAILURE; INFLUENZA INFECTION Activity: As commented below Activity Comment: Resume activity gradually as tolerated Lifting: Wait until after follow-up appointment Exercise/Sports: Wait until after follow-up appointment Driving/Machine Use: No driving until allowed by primary care physician Non-emergency contact: Primary Care Provider Call non-emergency contact if: you have any medication questions, your symptoms worsen and you have a fever Diet: Carb Consistent or DM2, Heart Healthy and Low Potassium (2gm) Fluids: 2000ml (8 cups) Addtl Attending Provider Instructions: Please call your primary care physician or return to the ER immediately if with worsening of symptoms. Follow-up with your primary care physician on Thursday, September 05, 2019.. Please review your new medications and follow instructions carefully. Use oxygen 2 L via nasal cannula while ambulating. Call your Primary Care doctor if any of the following symptoms or problems start or get worse: Shortness of breath or difficulty breathing Wake up at night short of breath Chest pain Cough Swelling of your hands, feet, or legs More fatigued or tired with your normal activity Palpitations - sudden fast heart beats WEIGHT Weigh yourself every morning after using the bathroom. Use the same scale. Wear the same amount of clothing. Write your weight down on a chart. Call your Primary Care doctor if you gain more than 2-3 pounds in 1-2 days. MEDICATIONS Use this discharge instruction sheet for medication instructions. Take your medications at the time your doctor ordered. Do not skip a dose of your medicines. If you miss a dose of medicine, take it as soon as possible, but DO NOT DOUBLE A DOSE. Read your medicine information when you get home. Know all of the side effects of your medicine. If in doubt, ask your pharmacist Call your Primary Care doctor's office if you have any side effects. Be sure all of your doctors know what medicine and herbs you take (including cold, flu, and herbal medicine). Take the following with you to your follow-up doctor appointments: Weight Chart Medication List List of questions Do not drink excessive alcohol, beer or wine. Who to Call and When: Call 911 or go to the Emergency Room if: If at any time you feel your situation is an emergency You have tightness or pain in your chest that does not go away with rest or Nitroglycerin You are very short of breath even with rest. Pending Studies at Discharge: Yes Studies:: Repeat blood work (basic metabolic profile) upon follow-up with primary care physician on Thursday, September 05, 2019 Stand-Alone Forms: [facility], Sm[facility] Cess[facility] Medications and DC Order Prescriptions: New cephalexin 500 mg Capsule 500 mg PO BID 1 Days Qty: 2 RF: 0 Continued multivitamin Tablet 1 tab PO DAILY RF: 0 furosemide 40 mg Tablet 40 mg PO QAM RF: 0 metformin 500 mg Tablet 500 mg PO DAILY RF: 0 pravastatin 40 mg Tablet 40 mg PO DAILY RF: 0 metoprolol succinate [Toprol XL] 100 mg Tablet Extended Release 24 Hr 100 mg PO DAILY RF: 0 amlodipine 5 mg Tablet 5 mg PO DAILY RF: 0 sotalol 120 mg Tablet 120 mg PO BID RF: 0 acetaminophen [Tylenol Extra Strength] 500 mg Tablet 500 mg PO UD PRN (Reason: Pain) RF: 0 clotrimazole-betamethasone [Lotrisone] 1-0.05 % Cream 1 applic TOPICAL BID RF: 0 omeprazole 20 mg Capsule,Delayed Release(Dr/Ec) 20 mg PO DAILY RF: 0 montelukast [Singulair] 10 mg Tablet 10 mg PO HS RF: 0 albuterol sulfate 90 mcg/actuation Hfa Aerosol Inhaler 2 puff INHALATION Q6H PRN (Reason: Shortness Of Breath) RF: 0 pregabalin 100 mg Capsule 100 mg PO TID RF: 0 fenofibrate nanocrystallized [Tricor] 145 mg Tablet 145 mg PO DAILY RF: 0 Symbicort 160-4.5 mcg/actuation Hfa Aerosol Inhaler 2 puff INHALATION BID PRN (Reason: Shortness Of Breath) RF: 0 apixaban 5 mg Tablet 5 mg PO BID RF: 0 benzonatate 100 mg Capsule 100 mg PO TID PRN (Reason: Cough) RF: 0 Discontinued losartan 100 mg Tablet 100 mg PO DAILY RF: 0 Discharge Orders: Discharge Order (Routine); Ordered 09/01/19 Ordered By: Lavon Trujillo Admission Data Admit Date/Time: 08/28/19 11:06 Attending Provider: Lavon Trujillo Admit Provider: Jaye Jain Primary Care Provider: PCP,SUZIE Other Providers: Jaye Jain ; Kelvin Long ; Marek Snell ; Fermin Velasco ; Montana Silva ; Chiki Smiley ; Mahesh Mon ; Prosper Maher ; Carolee Cox Other Interventions: Discharge Summary Assessment (RN) Last Done: 09/01/19 14:37
== END 2019-09-01 15:56 | disposition home or self-care (01) | DRG 291 ==
LOC: EDBD 09:31 → ED 09:31 → 1E 11:06 → SUATTDRO 11:06 → 1E 11:37 → 2S 08-29 19:41